=== PATIENT | female | born 1995 | race Caucasian/White ===

== ENCOUNTER 2025-03-30 12:57 | Outpatient (CLI) | payer MEDICAID, SELFPAY ==
[2025-03-30 13:17] VITALS: BP 122/78; PULSE 82
[2025-03-30 13:20] VITALS: PULSE 81; O2SAT 99
--- NOTE | 2025-03-30 13:22 | CRLHL7_ITS ---
For Patients: As a result of the Century Cures Act, medical imaging exams and procedure reports are released immediately into your electronic medical record. You may view this report before your referring provider. If you have questions, please contact your health care provider. INDICATION: Abdominal pain TECHNIQUE: Ultrasound OB pelvis transabdominal. Real-time giron-scale imaging of the fetus was performed as well as color Doppler analysis of the umbilical artery. COMPARISON: None. FINDINGS: Single living intrauterine gestation. heart rate: 149 beats per minute. Presentation: Cephalic. Placenta: Posterior, no evidence of previa. Placental lyon near the cord insertion measuring 5.2 x 1.5 x 1.8 cm. Amniotic fluid deepest pocket: 6.6 cm. Cervix: 3.3 cm in length and closed IMPRESSION.: Viable intrauterine . Placental lyon near the cord insertion measuring up to 5.2 cm. The chronicity of this is indeterminate. Given the size and close proximity of this structure to the cord insertion, close follow up ultrasound is recommended to ensure resolution. Dictated by Radha Mcmahon MD @ 03/30/2025 2:23:46 PM (Electronically Signed)
[2025-03-30 13:25] VITALS: PULSE 84; O2SAT 99
[2025-03-30 13:30] VITALS: RESP 17; TEMP 36.9
[2025-03-30 14:01] LABS: Clue Cells No Clue Cells Seen (None Seen); Trichomonas No Trichomonas Seen (None Seen); Yeast No Yeast Seen (None Seen)
[2025-03-30 14:06] LABS: Basophils Absolute Auto 0.02 K/uL (0.00-0.30); Basophils Percent Auto 0.2 % (0.0-3.0); Eosinophils Absolute Auto 0.07 K/uL (0.00-0.50); Eosinophils Percent Auto 0.8 % (0.0-7.0); Hematocrit 31.2 % (33.0-51.0); Hemoglobin* 10.5 gm/dL (12.0-16.0); Immature Granulocytes Abs Auto 0.11 K/uL (0.00-0.30); Immature Granulocytes Pct Auto 1.2 %; Lymphocytes Percent Auto 18.2 % (20-44); Mean Corpuscular HGB Conc 34 gm/dL (32-36); Mean Corpuscular Hemoglobin 30 pg (26-34); Mean Corpuscular Volume 90 fL (80-100); Monocytes Percent Auto 5.6 % (0.0-11.0); Platelet Count* 281 K/uL (140-440); RDW Coefficient of Variation % 13.2 % (11.5-15.5); Red Blood Count 3.46 m/uL (4.00-5.20); White Blood Count* 9.11 K/uL (4.50-11.00)
[2025-03-30 14:08] LABS: Appearance Urine Clear (Clear); Bilirubin Urine Negative (Negative); Blood Urine Negative (Negative); Color Urine Yellow (Yellow); Glucose Urine Negative (Negative); Ketones Urine Negative (Negative); Leukocyte Esterase Urine Negative (Negative); Nitrite Urine Negative (Negative); Protein Urine Negative (Negative); Urobilinogen Urine 0.2 (0.2-1.0)
[2025-03-30 14:12] LABS: Slide Review Reflex No
--- NOTE | 2025-03-30 14:18 | P.OBO_ITS ---
OB Outpatient HPI History of Present Illness History of Present Illness: Jayda is a 25-year-old [id number] woman at 27 3/7 weeks gestation who presents to Center triage with chief complaint of left-sided pelvic cramping which has been unremitting this morning. It is constant. She does report some consti pation upon questioning, but did have about woman today. Stools are hard. She denies any bleeding, loss of fluid. Good movement. No urinary complaints. No fevers. She has no history of labor. She has just transferred care to our institution as of 24 weeks and has had 1 visit here during this . Ob problem list: 1. History of preeclampsia without severe features 2. History of mild asthma 3. History of anxiety with panic attacks, has not had in many years Meds Home Medications and Allergies Home Medications ?Medication ?Instructions ?Recorded ?Confirmed ?Type aspirin 81 mg tablet 81 mg PO QDAY 03/08/2503/08 History vit 168-iron 27 mg-folic cap PO 03/08/2503/28 History acid 800 mcg-omega3 235 mg capsule (One-A-Day -1) Allergies Allergy/AdvReac Type Severity Reaction Status Date / Time No Known Drug Allergies Allergy Verified 03/08/25 11:29 [facility] Medical History (Updated 03/30/25 @ 14:40 by Flor Rodriguez MD) Anxiety disorder with panic attacks ?F41.9 - Anxiety disorder, unspecified (ICD-10) Surgical History (Updated 03/08/25 @ 11:49 by Doris Garcia CNM) [place] teeth extracted ?K08.409 - Partial loss of teeth, unspecified cause, unspecified class (ICD- 10) Social History (Updated 03/08/25 @ 12:34 by Doris Garcia CNM) Narrative: SOCIAL??? 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 Partner: Mahad, SO??? Lives with: Mahad and Daughter, Sally??? Pets: 2 dogs and 1 cat Abuse: Denies past/present??? Special Diet: Denies??? Ok with a blood transfusion: yes??? Culture or druze beliefs: denies? RISK FACTORS??? Exercise Times/wk: Walking, 5x per week??? Depression/Anxiety: Hx of??? WALKER: 0 PHQ 9: 0??? Seat Belt Use: Routinely?? Smoking: Denies present; Hx of smoking 5-10 years ago socially Alcohol/day: Denies while ??? Caffeine: Coffee morning up to 1x per day??? Drug Use: Denies past/present??? MRSA: Denies? What is your current living situation?: I presently have a place to live Problems where you live: no known problems In the past 12 months, utilities in danger of being shut off: no In past 12 months, lack of transportation kept you from medical appts, meetings, work, or getting things needed for daily living: no In the past 12 mos, have been you worried that your food would run out before you had money to buy more?: never true In the past 12 mos, the food you bought just didn't last and you didn't have money to buy more?: never true How often does anyone, including family, friends and others, physically hurt you : never How often does anyone, including family, friends and others, insult or talk down to you: never How often does anyone, including family, friends and others, threaten you with harm: never How often does anyone, including family, friends and others, scream or curse at you: never History History 3 Elective abortions Para 1 Spontaneous abortions 1 Hx # Term Pregnancies 1 Ectopic pregnancies Hx # Pregnancies Multiple births Number of Living Children 1 Past Pregnancies Del. Date GA/Weeks Outcome Route wt Inf Gender Labor Lgth Anesthesia Location Provider Compli Unknown spontaneous 04/15/19 37 live - full term 6 lb Female epidural [place], [place] preeclampsia OB - H&P: Exam Physical Exam Vital signs: Pulse BP Pulse Ox 82 122/78 99 03/30/25 13:17 03/30/25 13:17 03/30/25 13:25 Narrative: Physical exam: Vitals as noted above. General: No acute distress Psych: Alert and oriented x 3, full affect HEENT: Normocephalic, atraumatic Abdomen: Soft, nontender, gravid, cephalic lie. Some discomfort around palpation to left flank and left lower quadrant. Pelvic exam: Cervix closed, long, high tracing: Baseline 140, accelerations present, no decelerations, moderate variability No contractions visualized on toco Labs: WBC 9.11 Hb 10.5 Wet prep negative Ultrasound (my read): Cervix 3.3 cm SDP 6.6 Cephalic Placenta without visualized abruption Labs Labs Laboratory Tests 03/30/25 03/30/25 03/30/25 Range/Units 13:58 13:52 13:22 WBC 9.11 (4.50-11.00) K/uL RBC 3.46 L (4.00-5.20) m/uL Hgb 10.5 L (12.0-16.0) gm/dL Hct 31.2 L (33.0-51.0) % MCV 90 (80-100) fL MCH 30 (26-34) pg MCHC 34 (32-36) gm/dL RDW Coeff of Jocelyne 13.2 (11.5-15.5) % Plt Count 281 (140-440) K/uL Neut % (Auto) 74.0 H (42.0-72.0) % Lymph % (Auto) 18.2 L (20-44) % [place] % (Auto) 5.6 (0.0-11.0) % Eos % (Auto) 0.8 (0.0-7.0) % Baso % (Auto) 0.2 (0.0-3.0) % Neut # (Auto) 6.70 (1.7-7.0) K/uL Lymph # (Auto) 1.70 (0.90-2.90) K/uL [place] # (Auto) 0.50 (0.00-0.90) K/UL Eos # (Auto) 0.07 (0.00-0.50) K/uL Baso # (Auto) 0.02 (0.00-0.30) K/uL Abs Immat Gran (auto) 0.11 (0.00-0.30) K/uL Imm/Tot Granulo (auto) 1.2 % Urine Color Urine Appearance Urine pH Ur Specific [place] Urine Protein Urine Glucose (UA) Urine Ketones Urine Blood Urine Nitrite Urine Bilirubin Urine Urobilinogen Ur Leukocyte Esterase Vaginal Trichomonas No Trichomonas Seen (None Seen) Vaginal Yeast No Yeast Seen (None Seen) Vaginal Clue Cells No Clue Cells Seen (None Seen) Fibronectin Pending 03/30/25 Range/Units 13:06 WBC (4.50-11.00) K/uL RBC (4.00-5.20) m/uL Hgb (12.0-16.0) gm/dL Hct (33.0-51.0) % MCV (80-100) fL MCH (26-34) pg MCHC (32-36) gm/dL RDW Coeff of Jocelyne (11.5-15.5) % Plt Count (140-440) K/uL Neut % (Auto) (42.0-72.0) % Lymph % (Auto) (20-44) % [place] % (Auto) (0.0-11.0) % Eos % (Auto) (0.0-7.0) % Baso % (Auto) (0.0-3.0) % Neut # (Auto) (1.7-7.0) K/uL Lymph # (Auto) (0.90-2.90) K/uL [place] # (Auto) (0.00-0.90) K/UL Eos # (Auto) (0.00-0.50) K/uL Baso # (Auto) (0.00-0.30) K/uL Abs Immat Gran (auto) (0.00-0.30) K/uL Imm/Tot Granulo (auto) % Urine Color Pending Urine Appearance Pending Urine pH Pending Ur Specific [place] Pending Urine Protein Pending Urine Glucose (UA) Pending Urine Ketones Pending Urine Blood Pending Urine Nitrite Pending Urine Bilirubin Pending Urine Urobilinogen Pending Ur Leukocyte Esterase Pending Vaginal Trichomonas (None Seen) Vaginal Yeast (None Seen) Vaginal Clue Cells (None Seen) Fibronectin Assessment and Plan Assessment and plan (1) Anemia affecting : Status: Acute Assessment and Plan: Hemoglobin 10.5 today. Her recommended that she avoid iron supplementation until constipation has been managed. (2) Constipation during : Status: Acute Assessment and Plan: I recommended MiraLax nightly to begin with. Can use this as a trial to see if this helps her left lower quadrant cramping. (3) Left lower quadrant abdominal pain affecting : Status: Acute Assessment and Plan: No evidence of labor, with cervix long and closed both digitally and on ultrasound. Reassuring status with reactive tracing. She should return should symptoms worsen. Otherwise, follow up in clinic next week as scheduled.
--- NOTE | 2025-03-30 14:36 | PC.OBNST ---
NST Note NST Note Start: 03/30/25 14:34 Freq: Status: Active Protocol: Document 03/30/25 14:35 [facility] (Rec: 03/30/25 14:35 [facility] [id number]) NST Note 3 Para (# of births) 1 EDC 06/26/25 Gestational Age In 27 Weeks & 3 Days Weeks & Days Patient Presented Contractions/cramping with Complaint(s) of Reactive Yes Appropriate for Yes Gestational Age RN Farhad RN Date 03/30/25 Reactive Yes Appropriate for Yes Gestational Age RN Jero RN Date 03/30/25 OB NST charge Yes Complete NST Note Yes via Write Note The provider's electronic signature indicates the NST is reactive/appropriate for gestational age. *Note to provider: If an addendum is required, open the patient's chart and click on the note under the Nurse/Allied Health tab.
[2025-03-30 15:08] LABS: Fetal Fibronectin* Negative (Negative)
== END 2025-03-30 14:49 | disposition home or self-care (01) ==
LOC: OB OUT 12:57 → OB 12:57
PROVIDERS: Visit Provider Obstetrics & Gynecology
DX: O47.02 False labor before 37 completed weeks of gestation, second trimester (principal); Z3A.27 27 weeks gestation of pregnancy
CPT/HCPCS: 36415; 59025; 76815; 81003; 84112; 85025; 87210; G0463

== ENCOUNTER 2025-04-06 10:17 | Outpatient (CLI) | payer OTHER, MEDICAID, SELFPAY | END 2025-04-06 10:18 | disposition home or self-care (01) | LOC: NFLDREF 04-08 15:29 | PROVIDERS: Visit Provider Obstetrics & Gynecology | DX: Z34.93 Encounter for supervision of normal pregnancy, unspecified, third trimester (principal); Z3A.28 28 weeks gestation of pregnancy | CPT/HCPCS: 86592; 86787 ==

== ENCOUNTER 2025-04-22 13:12 | Outpatient (CLI) | payer OTHER, MEDICAID, SELFPAY | END 2025-04-22 13:13 | disposition home or self-care (01) | PROVIDERS: Visit Provider Obstetrics & Gynecology | DX: O09.293 Supervision of pregnancy with other poor reproductive or obstetric history, third trimester (principal); Z3A.30 30 weeks gestation of pregnancy | CPT/HCPCS: 82565; 82570; 84156; 84450; 84460; 84520 ==

== ENCOUNTER 2025-05-03 09:04 | Outpatient (CLI) | payer OTHER, MEDICAID, SELFPAY | END 2025-05-03 09:05 | disposition home or self-care (01) | LOC: NFLDREF 05-04 15:47 | PROVIDERS: Visit Provider Obstetrics & Gynecology | DX: O09.299 Supervision of pregnancy with other poor reproductive or obstetric history, unspecified trimester (principal) | CPT/HCPCS: 82570; 84156 ==

== ENCOUNTER 2025-05-05 15:24 | Outpatient (CLI) | payer OTHER, MEDICAID, SELFPAY ==
[2025-05-05] VITALS (33 sets, daily range): BP systolic 122; BP diastolic 76; PULSE 85–108; RESP 18; TEMP 36.9; O2SAT 91–100
--- NOTE | 2025-05-05 16:47 | CRLHL7_ITS ---
For Patients: As a result of the Cures Act, medical imaging exams and procedure reports are released immediately into your electronic medical record. You may view this report before your referring provider. If you have questions, please contact your health care provider. INDICATION: Cough. Shortness of breath. TECHNIQUE: Chest 1 portable view. COMPARISON: None. FINDINGS: No pneumothorax or pleural effusion. Lungs are clear. Cardiac and mediastinal contours are within normal limits. Upper abdomen and osseous structures as imaged show no acute abnormality. IMPRESSION: No evidence of acute cardiopulmonary disease. Dictated by Simone Parmar MD @ 05/05/2025 7:10:46 PM (Electronically Signed)
[2025-05-05 17:22] LABS: Hematocrit* 30.0 % (33.0-51.0); Hemoglobin* 10.2 gm/dL (12.0-16.0); Immature Granulocytes Abs Auto 0.10 K/uL (0.00-0.30); Immature Granulocytes Pct Auto 1.1 %; Mean Corpuscular HGB Conc 34 gm/dL (32-36); Mean Corpuscular Hemoglobin 30 pg (26-34); Mean Corpuscular Volume 89 fL (80-100); RDW Coefficient of Variation % 13.4 % (11.5-15.5); Red Blood Count* 3.37 m/uL (4.00-5.20); White Blood Count* 9.34 K/uL (4.50-11.00)
[2025-05-05 17:27] LABS: Lymphocytes Absolute Auto 1.80 K/uL (0.90-2.90); Slide Review Reflex No
[2025-05-05 17:57] LABS: NT Pro B Type NatriureticPept* 73 pg/mL (See Note)
--- NOTE | 2025-05-05 18:45 | P.OBLDTN_ITS ---
OB - Triage/Final Diagnosis Visit Information Time Seen by Provider: 18:45 Narrative: The patient is a 29 year old 3 para 1 at 32 weeks gestation by LMP, who presents with decreased movement and cough. is complicated by history of preeclampsia in a previous , proteinuria, acid reflux, constipation, history of asthma and episodes of palpitations. Patient call clinic triage today. She notes she has had about a week and a half of a cough that is persistent and bothersome. She was not particularly worried about this, but then noted today that her movement was decreased from baseline. She was encouraged to present to care. On arrival, fortunately status is entirely reassuring and reactive. I presented the bedside, where patient notes that she has had a persistent dry cough for about the last 2 weeks. She notes that she has no known sick contacts, denies any fever/chills, headache. At night, she will note that she does seem to have some postnasal drip and otherwise notes that her nose feels like she has a dry congestion. P atient does note that she has felt shortness of breath over the last week and a half, particular when lying down. She has noticed some worsening lower extremity edema, but this does improve with/elevation. She has no history of chronic hypertension, cardiovascular disease or VTE. She does have a history of asthma, this is primarily bothersome as a child. Now, she will really only get flares if she were to have an infection/cold or with significant exercise. She does not have an albuterol inhaler on hand. She has not taken any medications to try to help her cough symptoms, as she was unc ertain what is safe to use in . Vital signs reviewed and are within normal limits. Mild tachycardia noted, at patient baseline. Blood pressure is totally normal and she is satting well on room air. status across extended monitoring is reactive/reassuring. Patient notes return of active movement during her time in triage. She is overall well-appearing and in no acute distress. Heart rate is regular with no rubs murmurs or gallops. Lungs are clear to posterior auscultation throughout, no apparent wheezes or crackles. No significant lower extremity edema. Out of an abundance of precaution, I did proceed with viral swab, lab evaluation and a chest x-ray to evaluate for potential infectious etiologies, acute pulmonary processes and peripartum cardiomyopathy/heart failure. My clinical suspicion for dangerous pathologies is overall very low. CBC is normal with no leukocytosis. Patient is known to be anemic, 10.2 today. Her BNP was entirely within normal limits at 73. Viral swab was found to be negative. Chest x-ray was read by myself and the physician, no acute pathologies identified. Specifically, no apparent pneumonia, pneumothorax, pleural effusion or pulmonary edema. Cardiac silhouette does not appear enlarged. Heart failure is felt to be reasonably excluded given my overall low clinical suspicion and normal BNP. Given extended duration between imaging and radiology read, patient was counseled on my preliminary findings understands I will contact her if there any acute findings after formal radiology read of her chest x-ray. She expressed understanding and is agreeable to plan. Recommend she symptomatic we manage her cough with guaifenesin, nasal irrigation/Flonase and trial of albuterol inhaler. Strict return precautions reinforced for worsening symptoms, acute chest pain, acute dyspnea, dizziness/lightheadedness, fever/chills. VTE return precautions were reinforced for lower extremity erythema, pain, edema and/or again chest pain or dyspnea. Patient expressed understanding and is agreeable to plan. Reason for evaluation: decreased movement Evaluation Laboratory results: Laboratory Tests 05/05/25 05/05/25 Range/Units 18:10 16:57 WBC 9.34 (4.50-11.00) K/uL RBC 3.37 L (4.00-5.20) m/uL Hgb 10.2 L (12.0-16.0) gm/dL Hct 30.0 L (33.0-51.0) % MCV 89 (80-100) fL MCH 30 (26-34) pg MCHC 34 (32-36) gm/dL RDW Coeff of Jocelyne 13.4 (11.5-15.5) % Plt Count 288 (140-440) K/uL Neut % (Auto) 70.3 (42.0-72.0) % Lymph % (Auto) 19.4 L (20-44) % [place] % (Auto) 7.7 (0.0-11.0) % Eos % (Auto) 1.2 (0.0-7.0) % Baso % (Auto) 0.3 (0.0-3.0) % Neut # (Auto) 6.57 (1.7-7.0) K/uL Lymph # (Auto) 1.80 (0.90-2.90) K/uL [place] # (Auto) 0.70 (0.00-0.90) K/UL Eos # (Auto) 0.11 (0.00-0.50) K/uL Baso # (Auto) 0.03 (0.00-0.30) K/uL Abs Immat Gran (auto) 0.10 (0.00-0.30) K/uL Imm/Tot Granulo (auto) 1.1 % NT-Pro-B Natriuret Pep 73 (See Note) pg/mL SARS-CoV-2 (PCR) Pending Influenza Type A (PCR) Pending Influenza Type B (PCR) Pending Vital signs: Vital Signs - 24 hr 05/05/25 15:37 05/05/25 15:38 05/05/25 15:58 Temperature 98.4 F Pulse Rate 103 H Respiratory Rate 18 Blood Pressure 122/76 Pulse Oximetry 98 98 05/05/25 16:03 05/05/25 16:08 05/05/25 16:13 Temperature Pulse Rate Respiratory Rate Blood Pressure Pulse Oximetry 98 98 98 05/05/25 16:18 05/05/25 16:23 05/05/25 16:28 Temperature Pulse Rate Respiratory Rate Blood Pressure Pulse Oximetry 96 97 98 05/05/25 16:33 05/05/25 16:38 05/05/25 16:43 Temperature Pulse Rate Respiratory Rate Blood Pressure Pulse Oximetry 97 98 99 05/05/25 16:48 05/05/25 16:50 05/05/25 16:53 Temperature Pulse Rate Respiratory Rate Blood Pressure Pulse Oximetry 97 91 98 05/05/25 16:58 05/05/25 17:03 05/05/25 17:08 Temperature Pulse Rate Respiratory Rate Blood Pressure Pulse Oximetry 99 97 98 05/05/25 17:13 05/05/25 17:18 05/05/25 17:23 Temperature Pulse Rate Respiratory Rate Blood Pressure Pulse Oximetry 98 99 99 05/05/25 17:28 05/05/25 17:33 05/05/25 17:38 Temperature Pulse Rate Respiratory Rate Blood Pressure Pulse Oximetry 98 98 98 05/05/25 17:43 05/05/25 17:48 05/05/25 17:53 Temperature Pulse Rate Respiratory Rate Blood Pressure Pulse Oximetry 99 100 99 05/05/25 17:58 05/05/25 18:03 05/05/25 18:08 Temperature Pulse Rate Respiratory Rate Blood Pressure Pulse Oximetry 99 98 99 05/05/25 18:13 05/05/25 18:18 05/05/25 18:23 Temperature Pulse Rate Respiratory Rate Blood Pressure Pulse Oximetry 99 99 98
[2025-05-05 18:53] LABS: PCR FLU A Negative PCR FLU A (Negative); PCR FLU B Negative PCR FLU B (Negative); SARS PCR* Negative SARS-CoV-2 (Negative)
--- NOTE | 2025-05-05 18:58 | PC.OBNST ---
NST Note NST Note Start: 05/05/25 15:40 Freq: ONCE Status: Active Protocol: Document 05/05/25 18:53 [facility] (Rec: 05/05/25 18:58 [facility] Desktop) NST Note 3 Para (# of births) 1 EDC 04/15/19 Gestational Age In 356 Weeks & 0 Days Weeks & Days Patient Presented Decreased movement with Complaint(s) of Reactive Yes Appropriate for Yes Gestational Age JEAN MARIE Choe RN Date 05/05/25 Reactive Yes Appropriate for Yes Gestational Age JEAN MARIE Jaquez RN Date 05/05/25 OB NST charge Yes Complete NST Note Yes via Write Note The provider's electronic signature indicates the NST is reactive/appropriate for gestational age. *Note to provider: If an addendum is required, open the patient's chart and click on the note under the Nurse/Allied Health tab.
== END 2025-05-05 18:37 | disposition home or self-care (01) ==
LOC: OB OUT 15:25 → OB 15:25
PROVIDERS: Visit Provider Obstetrics & Gynecology
DX: O36.8130 Decreased fetal movements, third trimester, not applicable or unspecified (principal); O26.893 Other specified pregnancy related conditions, third trimester; R05.9 Cough, unspecified; R06.02 Shortness of breath; Z3A.32 32 weeks gestation of pregnancy
CPT/HCPCS: 36415; 59025; 71045; 83880; 85025; 87631; G0463

== ENCOUNTER 2025-05-11 09:45 | Outpatient (CLI) | payer OTHER, MEDICAID, SELFPAY ==
[2025-05-11] VITALS (8 sets, daily range): BP systolic 119–132; BP diastolic 76–85; PULSE 88–121; TEMP 36.8; O2SAT 99
--- NOTE | 2025-05-11 09:56 | CRLHL7_ITS ---
For Patients: As a result of the Century Cures Act, medical imaging exams and procedure reports are released immediately into your electronic medical record. You may view this report before your referring provider. If you have questions, please contact your health care provider. INDICATION: Growth. Preeclampsia. TECHNIQUE: Limited transabdominal two-dimensional giron-scale ultrasound examination. COMPARISON: 03/30/2025 FINDINGS: There is a living fetus in cephalic lie with gestational age of 33 weeks 3 days by LMP and 34 weeks 2 days by today`s measurements. EDC based on LMP is 06/26/2025. BPD: 8.3 cm, 33 weeks 4 days Head circumference: 30.1 cm, 33 weeks 2 days Abdominal circumference: 32.3 cm, 36 weeks 1 day Femur length: 6.6 cm, 34 weeks HC/AC: 0.93 The weight is estimated at 2573 grams, the 87th percentile. The heart rate is measured at 159 beats per minute and the rhythm appears regular. The amniotic fluid volume is within normal limits with single deepest pocket of 6 cm. The placenta is posterior. IMPRESSION: 1. Living fetus in cephalic lie with gestational age of 33 weeks 3 days by LMP and 34 weeks 2 days by today`s measurements. EDC based on LMP is 06/26/2025. 2. weight estimated at 2573 grams, the 87th percentile. Dictated by Brent Azevedo MD @ 05/11/2025 10:56:24 AM (Electronically Signed)
[2025-05-11] MEDS: BETAMETHASONE SOD PHOS/ACETATE 6 MG/ML ML 12 MG IM (10:20)
[2025-05-11 10:21] LABS: Hematocrit 33.3 % (33.0-51.0); Hemoglobin* 11.1 gm/dL (12.0-16.0); Mean Corpuscular HGB Conc 33 gm/dL (32-36); Mean Corpuscular Hemoglobin 30 pg (26-34); Mean Corpuscular Volume 90 fL (80-100); Red Blood Count 3.70 m/uL (4.00-5.20); White Blood Count* 10.26 K/uL (4.50-11.00)
[2025-05-11 10:22] LABS: Slide Review Reflex No
[2025-05-11 10:34] LABS: Blood Urea Nitrogen* 6 mg/dL (5-24); Creatinine* 0.7 mg/dL (0.5-1.5); Estimated Glomerular Filt Rate 121 ml/min
[2025-05-11 10:35] LABS: Alanine Aminotransferase* 25 U/L (4-35); Aspartate Amino Transferase* 31 U/L (12-35)
[2025-05-11 11:14] LABS: Amnisure Rom* Negative
[2025-05-11 11:21] LABS: Trichomonas No Trichomonas Seen (None Seen)
[2025-05-12 09:46] LABS: Strep B DNA Probe Negative (Negative)
[2025-05-12 10:11] LABS: Strep B Susceptibility Needed? No
--- NOTE | 2025-06-27 16:03 | PC.OBNST ---
NST Note NST Note Start: 05/11/25 09:51 Freq: ONCE Status: Discharge Protocol: Document 05/11/25 09:51 [facility] (Rec: 05/11/25 12:30 [facility] [id number]) NST Note 3 Para (# of births) 1 EDC 06/26/25 Gestational Age In 33 Weeks & 3 Days Weeks & Days High Risk Factors High Blood Pressure - Gestational Patient Presented Leaking fluid,Other with Complaint(s) of Other Complaints R/O pre-e Reactive Yes Appropriate for Yes Gestational Age JEAN MARIE Jaquez RN Date 05/11/25 Reactive Yes Appropriate for Yes Gestational Age JEAN MARIE Gtz RN Date 05/11/25 OB NST charge Yes Complete NST Note Yes via Write Note The provider's electronic signature indicates the NST is reactive/appropriate for gestational age. *Note to provider: If an addendum is required, open the patient's chart and click on the note under the Nurse/Allied Health tab.
== END 2025-05-11 12:25 | disposition home or self-care (01) ==
LOC: OB OUT 09:48 → OB 09:49
PROVIDERS: Visit Provider Obstetrics & Gynecology
DX: O14.93 Unspecified pre-eclampsia, third trimester (principal); Z3A.33 33 weeks gestation of pregnancy
CPT/HCPCS: 36415; 59025; 76815; 82565; 84112; 84450; 84460; 84520; 85027; 87081; 87210; 87653; G0463; J0702

== ENCOUNTER 2025-05-12 11:03 | Outpatient (CLI) | payer OTHER, MEDICAID, SELFPAY ==
[2025-05-12] VITALS (25 sets, daily range): BP systolic 113–137; BP diastolic 60–79; PULSE 85–107; RESP 16; TEMP 36.8; O2SAT 97–98
[2025-05-12 11:30] LABS: Hematocrit 29.9 % (33.0-51.0); Hemoglobin* 9.9 gm/dL (12.0-16.0); Mean Corpuscular HGB Conc 33 gm/dL (32-36); Mean Corpuscular Hemoglobin 30 pg (26-34); Mean Corpuscular Volume 90 fL (80-100); Red Blood Count 3.32 m/uL (4.00-5.20); White Blood Count* 14.16 K/uL (4.50-11.00)
[2025-05-12 11:34] LABS: Slide Review Reflex No
[2025-05-12 11:48] LABS: Alanine Aminotransferase* 27 U/L (4-35); Aspartate Amino Transferase* 33 U/L (12-35); Blood Urea Nitrogen* 7 mg/dL (5-24); Creatinine* 0.6 mg/dL (0.5-1.5); Estimated Glomerular Filt Rate 125 ml/min
--- NOTE | 2025-05-12 16:32 | PC.OBNST ---
NST Note NST Note Start: 05/12/25 11:11 Freq: ONCE Status: Active Protocol: Document 05/12/25 16:30 [facility] (Rec: 05/12/25 16:32 [facility] [id number]) NST Note 3 Para (# of births) 1 EDC 06/26/25 Gestational Age In 33 Weeks & 4 Days Weeks & Days High Risk Factors High Blood Pressure - Gestational Patient Presented Other with Complaint(s) of Other Complaints High BP in clinic, continued monitoring Reactive Yes Appropriate for Yes Gestational Age RN Marino Stanton RN Date 05/12/25 Reactive Yes Appropriate for Yes Gestational Age JEAN MARIE Alvarado RN Date 05/12/25 OB NST charge Yes Complete NST Note Yes via Write Note The provider's electronic signature indicates the NST is reactive/appropriate for gestational age. *Note to provider: If an addendum is required, open the patient's chart and click on the note under the Nurse/Allied Health tab.
== END 2025-05-12 16:05 | disposition home or self-care (01) ==
LOC: OB OUT 11:03 → OB 11:03
PROVIDERS: Visit Provider Obstetrics & Gynecology
DX: O13.3 Gestational [pregnancy-induced] hypertension without significant proteinuria, third trimester (principal); Z3A.33 33 weeks gestation of pregnancy
CPT/HCPCS: 36415; 59025; 82565; 82728; 84450; 84460; 84520; 85027; G0463

== ENCOUNTER 2025-05-13 13:39 | Outpatient (CLI) | payer OTHER, MEDICAID, SELFPAY ==
--- NOTE | 2025-05-13 13:45 | CRLHL7_ITS ---
For Patients: As a result of the Century Cures Act, medical imaging exams and procedure reports are released immediately into your electronic medical record. You may view this report before your referring provider. If you have questions, please contact your health care provider. INDICATION: Preeclampsia TECHNIQUE: Ultrasound OB pelvis transabdominal. Real-time giron-scale imaging of the fetus was performed with color Doppler and spectral Doppler analysis of the umbilical artery without stress testing. COMPARISON: 05/11/2025 FINDINGS: Sonographic imaging demonstrates a single living intrauterine gestation. Fetus demonstrates a regular cardiac rate of 137 beats per minute. Fetus has a cephalic orientation. The placenta lies posterior. Amniotic fluid volume appears normal with a MVP of 3.7 cm. breathing movements, motion, and tone were all observed. IMPRESSION: Single viable intrauterine with a biophysical profile 06/11. Dictated by Urban Llanes MD @ 05/13/2025 3:55:06 PM (Electronically Signed)
== END 2025-05-13 13:40 | disposition home or self-care (01) ==
LOC: US 13:40
PROVIDERS: Visit Provider Obstetrics & Gynecology
DX: O14.90 Unspecified pre-eclampsia, unspecified trimester (principal)
CPT/HCPCS: 76819

== ENCOUNTER 2025-05-13 13:39 | Outpatient (CLI) | payer OTHER, MEDICAID, SELFPAY | END 2025-05-13 13:40 | disposition home or self-care (01) | LOC: NFLDREF 05-18 05:44 | PROVIDERS: Visit Provider Obstetrics & Gynecology | DX: O12.13 Gestational proteinuria, third trimester (principal); Z3A.33 33 weeks gestation of pregnancy | CPT/HCPCS: 82565; 84450; 84460; 84520; 84550 ==

== ENCOUNTER 2025-05-18 08:50 | Outpatient (CLI) | payer OTHER, MEDICAID, SELFPAY ==
[2025-05-18] VITALS (24 sets, daily range): BP systolic 121–140; BP diastolic 68–87; PULSE 81–101; O2SAT 88–100
--- NOTE | 2025-05-18 11:49 | PC.OBNST ---
NST Note NST Note Start: 05/18/25 09:02 Freq: ONCE Status: Active Protocol: Document 05/18/25 10:25 [facility] (Rec: 05/18/25 11:49 [facility] [id number]) NST Note 2 Para (# of births) 1 EDC 06/26/25 Gestational Age In 34 Weeks & 3 Days Weeks & Days High Risk Factors High Blood Pressure - Gestational Patient Presented Other with Complaint(s) of Other Complaints Allergic reaction during iron transfusion Reactive Yes Appropriate for Yes Gestational Age JEAN MARIE Fernandez RN Date 05/18/25 Reactive Yes Appropriate for Yes Gestational Age JEAN MARIE Jaquez RN Date 05/18/25 OB NST charge Yes Complete NST Note Yes via Write Note The provider's electronic signature indicates the NST is reactive/appropriate for gestational age. *Note to provider: If an addendum is required, open the patient's chart and click on the note under the Nurse/Allied Health tab.
== END 2025-05-18 10:30 | disposition home or self-care (01) ==
LOC: OB OUT 08:52 → OB 08:53
PROVIDERS: Visit Provider Obstetrics & Gynecology
DX: O13.3 Gestational [pregnancy-induced] hypertension without significant proteinuria, third trimester (principal); Z3A.34 34 weeks gestation of pregnancy
CPT/HCPCS: 59025; G0463

== ENCOUNTER 2025-05-20 12:53 | Outpatient (CLI) | payer OTHER, MEDICAID, SELFPAY | END 2025-05-20 12:54 | disposition home or self-care (01) | LOC: NFLDREF 05-21 09:58 | PROVIDERS: Visit Provider Obstetrics & Gynecology | DX: O14.93 Unspecified pre-eclampsia, third trimester (principal); O12.13 Gestational proteinuria, third trimester; Z3A.34 34 weeks gestation of pregnancy | CPT/HCPCS: 82565; 84450; 84460; 84520; 84550 ==

== ENCOUNTER 2025-05-20 12:54 | Outpatient (CLI) | payer OTHER, MEDICAID, SELFPAY ==
--- NOTE | 2025-05-20 13:00 | CRLHL7_ITS ---
For Patients: As a result of the Cures Act, medical imaging exams and procedure reports are released immediately into your electronic medical record. You may view this report before your referring provider. If you have questions, please contact your health care provider. OB ULTRASOUND BIOPHYSICAL PROFILE, 05/20/2025 CLINICAL HISTORY: Pre-E without severe features. COMPARISON: 05/13/2025, 05/11/2025, 03/05/2025. TECHNIQUE: Real time giron scale imaging of the fetus was performed. Transabdominal imaging performed. FINDINGS: MARION by LMP: 06/26/2025. GA: 34 weeks 5 days. Cervix: Not visualized. Amniotic Fluid: 4.3 cm SDP. BIOPHYSICAL PROFILE: Gross Body Movements: 2 Tone: 2 Respiratory Activity: 2 Amniotic Fluid SDP: 2 Total Score: 8 Placenta: Technique: TA. Placenta Position: Posterior. Dopplers: Heart Rate: 155 bpm. IMPRESSION: Normal biophysical profile score of 8/8. Landon Ocampo M.D. Diagnostic Radiologist [email or web address] Transcribed: 2:11 pm DW/Dictated by: Landon Ocampo MD @ 05/20/2025 1:29:00 PM (Electronically Signed)
== END 2025-05-20 12:55 | disposition home or self-care (01) ==
LOC: US 12:54
PROVIDERS: Visit Provider Obstetrics & Gynecology
DX: O14.93 Unspecified pre-eclampsia, third trimester (principal); Z3A.34 34 weeks gestation of pregnancy; O12.13 Gestational proteinuria, third trimester
CPT/HCPCS: 76819

== ENCOUNTER 2025-05-27 12:52 | Outpatient (CLI) | payer OTHER, MEDICAID, SELFPAY ==
--- NOTE | 2025-05-27 14:00 | CRLHL7_ITS ---
For Patients: As a result of the Century Cures Act, medical imaging exams and procedure reports are released immediately into your electronic medical record. You may view this report before your referring provider. If you have questions, please contact your health care provider. INDICATION: Gestational proteinuria TECHNIQUE: Ultrasound OB pelvis transabdominal. Real-time giron-scale imaging of the fetus was performed with color Doppler and spectral Doppler analysis of the umbilical artery without stress testing. COMPARISON: 05/20/2025 FINDINGS: Sonographic imaging demonstrates a single living intrauterine gestation. Fetus demonstrates a regular cardiac rate of 134 beats per minute. Fetus has a cephalic orientation. The placenta lies posterior. Amniotic fluid volume appears normal with a MVP of 5.4 cm. breathing movements, motion, and tone were all observed. IMPRESSION: Single viable intrauterine with a biophysical profile 06/11. Dictated by Urban Llanes MD @ 05/27/2025 3:05:48 PM (Electronically Signed)
== END 2025-05-27 12:53 | disposition home or self-care (01) ==
LOC: US 12:53
PROVIDERS: Visit Provider Obstetrics & Gynecology
DX: O12.13 Gestational proteinuria, third trimester (principal)
CPT/HCPCS: 76819; 82565; 84450; 84460; 84520; 84550; 87653

== ENCOUNTER 2025-05-31 09:29 | Outpatient (CLI) | payer OTHER, MEDICAID, SELFPAY | END 2025-05-31 09:30 | disposition home or self-care (01) | PROVIDERS: Visit Provider Obstetrics & Gynecology | DX: O14.93 Unspecified pre-eclampsia, third trimester (principal); O12.13 Gestational proteinuria, third trimester; Z3A.36 36 weeks gestation of pregnancy | CPT/HCPCS: 82565; 84450; 84460; 84520; 84550 ==

== ENCOUNTER 2025-06-01 14:58 | Inpatient (IN) | payer OTHER, MEDICAID, SELFPAY ==
[2025-06-01] VITALS (91 sets, daily range): BP systolic 94–151; BP diastolic 51–98; PULSE 76–118; RESP 16; TEMP 36.4–36.7; O2SAT 83–100; BMI 32.5
[2025-06-01 11:58] LABS: Hematocrit* 32.2 % (33.0-51.0); Hemoglobin* 10.5 gm/dL (12.0-16.0); Mean Corpuscular HGB Conc 33 gm/dL (32-36); Mean Corpuscular Hemoglobin 29 pg (26-34); Mean Corpuscular Volume 90 fL (80-100); Red Blood Count* 3.57 m/uL (4.00-5.20); White Blood Count* 10.40 K/uL (4.50-11.00)
[2025-06-01 12:11] LABS: Slide Review Reflex No
[2025-06-01 12:16] LABS: Alanine Aminotransferase* 20 U/L (4-35); Aspartate Amino Transferase* 30 U/L (12-35); Blood Urea Nitrogen* 7 mg/dL (5-24); Creatinine* 0.7 mg/dL (0.5-1.5); Estimated Glomerular Filt Rate 121 ml/min
[2025-06-01] MEDS: ACETAMINOPHEN 500 MG TABLET 1000 MG PO ×2 (13:24→19:32)
[2025-06-01] MEDS: LACTATED RINGERS 500 ML 500 ML IV (13:27)
[2025-06-01] MEDS: PROCHLORPERAZINE 10 MG TABLET PO (13:31)
[2025-06-01] MEDS: MAGNESIUM IV 4 GM/100 ML PIGGYBACK IVPB (15:55)
[2025-06-01] MEDS: LACTATED RINGERS 1000 ML 1,000 ML 75 ML IV (15:55)
[2025-06-01] MEDS: MAGNESIUM Infusion 40 GM/1,000 ML IV.SOLN IVPB (16:30)
--- NOTE | 2025-06-01 17:58 | P.LDBA_ITS ---
Subjective History of Present Illness Time Seen by Provider: 18:00 Date Seen: 06/01/25 Narrative: Patient is being admitted to Labor and Delivery for induction of labor due to preeclampsia with severe features. She is a 29 year old at 36.3 weeks gestation. Her full history and physical was dictated by myself on 05/27. Please see this for details. She presented for evaluation in triage today due to an unremitting headache. It had come on a couple of days ago and has worsened. Nothing has helped. She started seeing spots and lines in her vision today. She received 500 mL IV bolus, 100 g of Tylenol, Compazine, morphine, hydroxyzine in triage. They were minimally helpful. She reports new onset of photophobia as well. Her blood pressures in triage were normal to mild ranging. 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 Given diagnosis, delivery is indicated. Active movement. Denies Ctx, LOF, vaginal bleeding or abnormal vaginal discharge. Denies SOB, right upper quadrant/epigastric pain, or rapidly expanding edema. Specific Issues/Plans Partner: Mahad Daughter: Sally(age 6) Baby: [] Transfer at 24.2 weeks from [facility] H&P by Dr. Mccloud on 05/27 #Preeclampsia w/o severe features dx'd on 05/11/25 @ 33w3d Elevated BPs 05/11/25 and proteinuria in 24 hours collected on 05/03/25 Growth US 05/11/25 Start twice weekly monitoring Delivery at 37 weeks, IOL scheduling form request sent start 06/04/25 at 36 6/7 weeks BMTZ: 05/11/25, 05/12/25 #Proteinuria: 05/03/25 32w2d 24hr urine protein: 457.5gm. Urine P/C 0.31 * Referral to nephrology #Hx of Pre-eclampsia w/out SF Taking baby ASA # Hx of mild Asthma, Does not use inhaler, improved in adulthood # Hx of anxiety with panic attacks: not on medication # 05/20/25: [place] ED for SOB, palpitations, tachycardia, elevated BP and chest pain * EKG: normal sinus rhythm * Troponin normal * CBC and comprehensive metabolic panel normal # Seen on Center for left-sided pelvic cramping on 03/30/2025. Ultrasound showed only placental lyon near the cord insertion measuring up to 5.2 cm; otherwise normal findings. Recommended initiation of MiraLax. Follow up on 04/06. # Anemia with hemoglobin 10.5 on 03/30/2025. - Start Fe every other day on 04/06 - Recheck on 05/12: 9.9. - Iron infusions: Had a vasovagal response (? due to anxiety) to first infusion on 05/18 so will restart PO 2tabs QOD. #Varicella non-immune - Recommend vaccine PP Transfer labs: Blood type: A+, antibody screen negative.??? Hgb (12/14/2024): 13.7??? Platelets (12/14/2024): 335??? Rubella: Immune??? Varicella: NOT immune - vaccine needed PP RPR: non-reactive??? HBsAg: non-reactive??? Hep C: negative? HIV: negative??? UC: negative? GC/Chlamydia: negative/negative??? Pap (12/14/2024): NIL??? Genetic screening: Low risk? 1st trimester: 11/16/2024??? Anatomy scan (02/03/2025): SIUP, limited view of outflow tracts and sacral spine. EFW 66.8%. Posterior placenta. No follow-up needed. Growth US 05/11/25: BPD: 8.3 cm, 33 weeks 4 days. Head circumference: 30.1 cm, 33 weeks 2 days. Abdominal circumference: 32.3 cm, 36 weeks 1 day. Femur length: 6.6 cm, 34 weeks . HC/AC: 0.93. The weight is estimated at 2573 grams, the 87th percentile.The amniotic fluid volume is within normal limits with single deepest pocket of 6 cm. 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 - BPs 110-140s/60-80s - Symptoms: headache. Improved with Magnesium infusion. Will give 1000 mg of Tylenol Q6H - Magnesium: on Magnesium for seizure ppx - IV antihypertensives: currently not indicated - PO antihypertensives: Currently not indicated - Pre-eclampsia labs on 06/01/2025 at 1830: Hgb 10.6 Plt 298 Cr 0.6 ALT 32 AST 19. Labs q6h - Strict I/O IOL - Cook cath placed at 1830. 50cc/50cc. Patient tolerated the procedure well OB Exam Physical Exam Vital signs: Temp Pulse Resp BP Pulse Ox 97.6 F 76 16 123/72 100 06/01/25 16:45 06/01/25 17:49 06/01/25 16:45 06/01/25 17:49 06/01/25 17:54 Narrative: Physical exam: General: No acute distress Psych: Alert and oriented x3, full affect HEENT: Normocephalic, atraumatic Lungs: Unlabored breathing Neuro: No focal deficit. Mentating appropriately Abdominal: Gravid. Soft, nontender, nondistended. No rebound or guarding. Pelvic exam: Dry perineum. /-3.
[2025-06-01 18:50] LABS: Hematocrit* 32.4 % (33.0-51.0); Hemoglobin* 10.6 gm/dL (12.0-16.0); Mean Corpuscular HGB Conc 33 gm/dL (32-36); Mean Corpuscular Hemoglobin 29 pg (26-34); Mean Corpuscular Volume 90 fL (80-100); Red Blood Count* 3.61 m/uL (4.00-5.20); White Blood Count* 10.47 K/uL (4.50-11.00)
[2025-06-01 18:53] LABS: Slide Review Reflex No
[2025-06-01 19:06] LABS: Alanine Aminotransferase* 19 U/L (4-35); Aspartate Amino Transferase* 32 U/L (12-35); Blood Urea Nitrogen* 6 mg/dL (5-24); Creatinine* 0.6 mg/dL (0.5-1.5); Est. Creatinine Clearance* 110.41; Estimated Glomerular Filt Rate 125 ml/min
[2025-06-01 21:08] LABS: Hematocrit* 28.1 % (33.0-51.0); Hemoglobin* 9.3 gm/dL (12.0-16.0); Mean Corpuscular HGB Conc 33 gm/dL (32-36); Mean Corpuscular Hemoglobin 30 pg (26-34); Mean Corpuscular Volume 90 fL (80-100); Red Blood Count* 3.12 m/uL (4.00-5.20); White Blood Count* 9.44 K/uL (4.50-11.00)
[2025-06-01 21:09] LABS: Slide Review Reflex No
[2025-06-02] VITALS (134 sets, daily range): BP systolic 84–180; BP diastolic 50–95; PULSE 85–121; RESP 16; TEMP 36.4–36.9; O2SAT 93–100
[2025-06-02 00:34] LABS: Hematocrit* 27.8 % (33.0-51.0); Hemoglobin* 9.2 gm/dL (12.0-16.0); Mean Corpuscular HGB Conc 33 gm/dL (32-36); Mean Corpuscular Hemoglobin 30 pg (26-34); Mean Corpuscular Volume 90 fL (80-100); Red Blood Count* 3.09 m/uL (4.00-5.20); White Blood Count* 11.18 K/uL (4.50-11.00)
[2025-06-02] MEDS: OXYTOCIN 30 unit/500 ML in NS 30 UNIT/500 ML BAG IVPB (00:36)
[2025-06-02 00:42] LABS: Slide Review Reflex No
[2025-06-02 00:49] LABS: Alanine Aminotransferase* 18 U/L (4-35); Aspartate Amino Transferase* 29 U/L (12-35); Blood Urea Nitrogen* 6 mg/dL (5-24); Creatinine* 0.6 mg/dL (0.5-1.5); Est. Creatinine Clearance* 110.41; Estimated Glomerular Filt Rate 125 ml/min
[2025-06-02] MEDS: ACETAMINOPHEN 500 MG TABLET 1000 MG PO ×3 (01:55→20:34)
[2025-06-02] MEDS: LACTATED RINGERS 1000 ML 1,000 ML 70 ML IV (04:59)
[2025-06-02 07:57] LABS: Hematocrit* 29.2 % (33.0-51.0); Hemoglobin* 9.9 gm/dL (12.0-16.0); Mean Corpuscular HGB Conc 34 gm/dL (32-36); Mean Corpuscular Hemoglobin 31 pg (26-34); Mean Corpuscular Volume 90 fL (80-100); Red Blood Count* 3.25 m/uL (4.00-5.20); White Blood Count* 10.83 K/uL (4.50-11.00)
[2025-06-02 07:58] LABS: Slide Review Reflex No
[2025-06-02 08:19] LABS: Alanine Aminotransferase* 16 U/L (4-35); Aspartate Amino Transferase* 30 U/L (12-35); Blood Urea Nitrogen* 6 mg/dL (5-24); Creatinine* 0.6 mg/dL (0.5-1.5); Est. Creatinine Clearance* 110.41; Estimated Glomerular Filt Rate 125 ml/min
--- NOTE | 2025-06-02 08:42 | PM.OBPNL ---
Subjective Time Seen by Provider: 11:00 Date Seen: 06/02/25 Narrative: Delayed documentation due to patient care. Jayda is a 29yo at 36w4d GA ongoing IOL due to preeclampsia with severe features. She is a 29 year old at 36.3 weeks gestation. 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 Decision was made to admit and start induction. Preeclampsia labs were found to be within normal limits. She was started on magnesium sulfate for seizure prophylaxis. Overnight, a Cook catheter was placed and Pitocin augmentation occurred. Her Cook was removed at about 620 this morning. Patient noted increasingly regular/painful contractions through the morning, where an epidural was requested and administered. After this, she had a period of hypotension and feeling off with nausea. Her blood pressures were treated with phenylephrine and ephedrine, ultimately the epidural infusion was discontinued. Jayda notes desire to proceed with active management of her induction. She is hopeful to expedite delivery, where she is uncertain if she would like the epidural infusion to be resumed later due to feeling poorly. As such, we discussed the risks/benefits and alternatives to amniotomy. Verbal consent was obtained if felt to be safe on exam. Objective Exam: General: Alert and oriented, in no acute distress Psych: Appropriate mood and affect Abdomen: Gravid. heart rate: Category 1. Baseline 120 beats per minute, moderate variability, several qualifying 15 x 15 accelerations seen, no decelerations. Bushnell: Arben about every 3 minutes Cervix: 4.5/70-1. AROM performed with return of clear fluid, uncomplicated. Vital Signs: Last Vital Signs Temp 97.8 F 06/02/25 07:34 Pulse 96 06/02/25 08:39 Resp 16 06/02/25 07:34 BP 130/76 06/02/25 08:39 Pulse Ox 98 06/02/25 03:59 Plan Plan: Jayda is a 29yo at 36w4d GA ongoing IOL due to preeclampsia with severe features. She is a 29 year old at 36.3 weeks gestation. 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 Serial HELLP labs have demonstrated interval stability. She is ongoing magnesium sulfate for seizure prophylaxis. IOL has included Cook catheter and Pitocin. Cervix is now 4.5/70/-1 where AROM was performed after discussion of risks/benefits. - Anticipate next cervical exam in 4 hours, sooner as clinically indicated. - Pain control per patient preference/anesthesia. Epidural catheter is in place, infusion currently turned. Patient can resume alongside HUMAN SERVICES ASSISTANT pending discussion. - Diligent BP monitoring ongoing, patient has not required any longer short-acting antihypertensives. Serial preeclampsia labs have been within normal limits. Magnesium sulfate ongoing, 2 grams/hour. - BT A+ - GBS negative - Pediatrics to attend delivery in the setting of preeclampsia with severe features and prematurity
[2025-06-02] MEDS: LACTATED RINGERS 1000 ML 1,000 ML 66 ML IV (09:29)
[2025-06-02] MEDS: LIDOCAINE 2% (PF) 5 ML VIAL EPIDURAL (09:42)
[2025-06-02] MEDS: ROPIVACAINE 0.2% 100 ml 100 ML 12 MG EPIDURAL (09:44)
[2025-06-02] MEDS: PHENYLEPHRINE 100 MCG/ML SYRINGE IVP ×13 (09:46→13:05)
[2025-06-02] MEDS: ONDANSETRON 2 MG/ML inj 4 MG IV (09:51)
--- NOTE | 2025-06-02 10:10 | P.ANBPRC_ITS ---
PFSH PFS Medical History Anxiety disorder with panic attacks ?F41.9 - Anxiety disorder, unspecified (ICD-10) Surgical History [place] teeth extracted ?K08.409 - Partial loss of teeth, unspecified cause, unspecified class (ICD- 10) Social History Narrative: SOCIAL??? 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 Partner: Mahad, SO??? Lives with: Mahad and Daughter, Sally??? Pets: 2 dogs and 1 cat Abuse: Denies past/present??? Special Diet: Denies??? Ok with a blood transfusion: yes??? Culture or yarsanism beliefs: denies? RISK FACTORS??? Exercise Times/wk: Walking, 5x per week??? Depression/Anxiety: Hx of??? WALKER: 0 PHQ 9: 0??? Seat Belt Use: Routinely?? Smoking: Denies present; Hx of smoking 5-10 years ago socially Alcohol/day: Denies while ??? Caffeine: Coffee morning up to 1x per day??? Drug Use: Denies past/present??? MRSA: Denies? What is your current living situation?: I presently have a place to live Problems where you live: no known problems In the past 12 months, utilities in danger of being shut off: no In past 12 months, lack of transportation kept you from medical appts, meetings, work, or getting things needed for daily living: no In the past 12 mos, have been you worried that your food would run out before you had money to buy more?: never true In the past 12 mos, the food you bought just didn't last and you didn't have money to buy more?: never true Smoking Status: Never smoker How often does anyone, including family, friends and others, physically hurt you : never How often does anyone, including family, friends and others, insult or talk down to you: never How often does anyone, including family, friends and others, threaten you with harm: never How often does anyone, including family, friends and others, scream or curse at you: never Meds Home Medications and Allergies Home Medications ?Medication ?Instructions ?Recorded ?Confirmed ?Type aspirin 81 mg tablet 81 mg PO QDAY 03/08/2506/01 History vit 168-iron 27 mg-folic 1 cap PO DAILY 03/0806/01/25 History acid 800 mcg-omega3 235 mg capsule (One-A-Day -1) omeprazole 20 mg capsule,delayed 20 mg PO QDAY #30 cap s 04/22/25 06/01/25 Rx release Allergies Allergy/AdvReac Type Severity Reaction Status Date / Time iron dextran complex (From Allergy Severe Difficulty Verified 06/01/25 11:45 Infed) Breathing Results Labs Labs: Laboratory Results - last 24 hr 06/01/25 06/01/25 06/01/25 11:55 18:43 18:54 WBC 10.40 10.47 RBC 3.57 L 3.61 L Hgb 10.5 L 10.6 L Hct 32.2 L 32.4 L MCV 90 90 MCH 29 29 MCHC 33 33 Plt Count 270 298 BUN 7 6 Creatinine 0.7 0.6 Estimated Creat Clear 110.41 Estimated GFR 121 125 Magnesium 4.9 H* AST 30 32 ALT 20 19 Blood Type A Positive Antibody Screen NEGATIVE 06/01/25 06/02/25 06/02/25 20:58 00:30 07:30 WBC 9.44 11.18 H 10.83 RBC 3.12 L 3.09 L 3.25 L Hgb 9.3 L 9.2 L 9.9 L Hct 28.1 L 27.8 L 29.2 L MCV 90 90 90 MCH 30 30 31 MCHC 33 33 34 Plt Count 255 241 241 BUN Cancelled 6 6 Creatinine Cancelled 0.6 0.6 Estimated Creat Clear Cancelled 110.41 110.41 Estimated GFR Cancelled 125 125 Magnesium 5.5 H* 5.5 H* 6.2 H* AST Cancelled 29 30 ALT Cancelled 18 16 Blood Type Antibody Screen Vital Signs Vital Signs: Last Vital Signs Temp 97.8 F 06/02/25 07:34 Pulse 107 H 06/02/25 10:09 Resp 16 06/02/25 07:34 BP 126/62 06/02/25 10:09 Pulse Ox 97 07/30/25 10:08 Weight: 80.739 kg Height: 157.48 cm Anesthesia Procedures Epidural Insertion Patient Location: OB Reason for Block: procedure for pain Patient Position: sitting Performed By: Kimberley Pardo Preanesthetic Checklist: IV checked, risks and benefits discussed, monitors and equipment checked, pre-op evaluation, timeout performed and anesthesia consent Prep: chlorhexidine gluconate Monitoring: blood pressure monitoring, continuous pulse oximetry and heart rate Approach: midline Vertebral Space: lumbar (1-5) Epidural Technique: JESU saline Needle Type: Tuohy needle Injection Technique: continuous catheter (continuous catheter) Needle gauge: 17 Needle Length (cm): 10 cm Needle Insertion Depth (cm): 7 Catheter Gauge: 19 Catheter Type: multi-orifice Catheter at skin depth (cm): 15 Test Dose Result: negative and lidocaine 1.5% with epinephrine 1 to 200,000
[2025-06-02] MEDS: ePHEDrine sulfate 5 MG/ML inj 10 MG IVP (10:15)
[2025-06-02] MEDS: LACTATED RINGERS 1000 ML 1,000 ML 125 ML IV (10:45)
[2025-06-02] MEDS: OMEPRAZOLE 20 MG CAPSULE DR PO (10:51)
[2025-06-02] MEDS: CALCIUM CARBONATE 500 MG CHEW PO (10:53)
[2025-06-02] MEDS: MAGNESIUM Infusion 40 GM/1,000 ML IV.SOLN IVPB (12:25)
[2025-06-02 13:58] LABS: Hematocrit* 29.8 % (33.0-51.0); Hemoglobin* 9.9 gm/dL (12.0-16.0); Mean Corpuscular HGB Conc 33 gm/dL (32-36); Mean Corpuscular Hemoglobin 30 pg (26-34); Mean Corpuscular Volume 90 fL (80-100); Red Blood Count* 3.33 m/uL (4.00-5.20); White Blood Count* 11.23 K/uL (4.50-11.00)
[2025-06-02 14:13] LABS: Slide Review Reflex No
[2025-06-02 14:17] LABS: Alanine Aminotransferase* 19 U/L (4-35); Aspartate Amino Transferase* 35 U/L (12-35); Blood Urea Nitrogen* 5 mg/dL (5-24); Creatinine* 0.7 mg/dL (0.5-1.5); Est. Creatinine Clearance* 94.63; Estimated Glomerular Filt Rate 121 ml/min
[2025-06-02] MEDS: lidocaine HCL 2 % JELLY (TOP) STERILE 6 ML TOPICAL (14:25)
--- NOTE | 2025-06-02 15:55 | W.PM.VAGD1_ITS ---
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 She was started on magnesium sulfate for seizure prophylaxis, diligent BP monitoring and serial preE labs ongoing. is otherwise complicated by asthma, anxiety and anemia. heart tones on admission were category 1. Her labor was induced with Cook catheter, augmented with Pitocin and amniotomy. Epidural was utilized for pain management. Status of bag of lamas: AROM occurred intrapartum, clear fluid. heart tones during active labor were category 1 and 2. She was complete at 1344 and started pushing at 1345. She made excellent descent throughout the second stage of labor, and had a normal spontaneous vaginal delivery at 1415. heart tones during second stage of labor were category 1. Baby delivered OA, where turtling was noted and restitution did not occur spontaneously. head was manually restituted to MARTIN, where gentle traction was applied along with a maternal expulsive effort. No descent of the anterior shoulder was noted, where she was placed into high lithotomy position and a second attempt to deliver the anterior shoulder was attempted and unsuccessful. Shoulder dystocia was diagnosed. Patient was rapidly repositioned into McRobert's position, suprapubic pressure was applied. These efforts were unsuccessful at alleviating the obstructed anterior shoulder. As such, I proceeded to delivery of the posterior arm. The left arm was noted to be e xtended alongside the body, gently was swept toward the abdomen and pressure was applied to flex the arm at the elbow. The arm was swept over the baby's chest and face resulting in delivery of the posterior arm. The anterior shoulder then readily delivered with a maternal pushing effort and gentle downward traction. Nuchal cord was absent. Baby was placed on maternal abdomen. The cord was clamped and cut immediately to allow for Pediatrics resuscitation in the setting of nonvigorous after a shoulder dystocia. Active management of the third stage occurred with IV pitocin and gentle cord traction and the placenta delivered spontaneous and intact at 1440. Cord gases sent: yes Cord blood sent for infant ABO: no details: - Liveborn male fetus at 1415 - weight 7lb 13 oz, large for GA - APGARs were 8 and 9 at 1 and 5 minutes respectively - ABG with pH of 7.38, CO2 39, bicarb 23, base excess -1.9. Normal cord gas. - Facial bruising noted, moving both extremities. No apparent fracture or brachial plexopathy per Pediatrics provider. Please see their note for complete details. Perineum and vagina were inspected, and the following lacerations were noted: none. No repair was required. Excellent hemostasis was noted. The following counts were correct: sponges, needles, instruments. Mother and infant in stable condition following the . Debrief of her delivery and shoulder dystocia was completed. All questions answered. [place] Infant Gender: Male presentation: vertex Placental Delivery Description: Spontaneous Cord Description: 3 Vessels
[2025-06-02] MEDS: IBUPROFEN 600 MG TABLET PO (17:18)
[2025-06-02 19:55] LABS: Blood Urea Nitrogen* 5 mg/dL (5-24); Creatinine* 0.7 mg/dL (0.5-1.5); Est. Creatinine Clearance* 94.63; Estimated Glomerular Filt Rate 121 ml/min
[2025-06-02 19:56] LABS: Alanine Aminotransferase* 17 U/L (4-35); Aspartate Amino Transferase* 33 U/L (12-35)
[2025-06-02 20:23] LABS: Hematocrit* 28.7 % (33.0-51.0); Hemoglobin* 9.7 gm/dL (12.0-16.0); Mean Corpuscular HGB Conc 34 gm/dL (32-36); Mean Corpuscular Hemoglobin 30 pg (26-34); Mean Corpuscular Volume 89 fL (80-100); Red Blood Count* 3.21 m/uL (4.00-5.20); White Blood Count* 15.98 K/uL (4.50-11.00)
[2025-06-02] MEDS: LACTATED RINGERS 1000 ML 1,000 ML 75 ML IV (20:39)
[2025-06-02 20:49] LABS: Slide Review Reflex No
[2025-06-03] VITALS (9 sets, daily range): BP systolic 117–130; BP diastolic 68–84; PULSE 66–92; RESP 16–22; TEMP 36.7–37.1; O2SAT 97–100
[2025-06-03] MEDS: IBUPROFEN 600 MG TABLET PO ×3 (04:30→18:21)
[2025-06-03 05:44] LABS: Hemoglobin* 8.6 gm/dL (12.0-16.0)
[2025-06-03 08:39] LABS: Hematocrit* 29.7 % (33.0-51.0); Hemoglobin* 9.7 gm/dL (12.0-16.0); Mean Corpuscular HGB Conc 33 gm/dL (32-36); Mean Corpuscular Hemoglobin 30 pg (26-34); Mean Corpuscular Volume 91 fL (80-100); Red Blood Count* 3.27 m/uL (4.00-5.20); White Blood Count* 12.74 K/uL (4.50-11.00)
[2025-06-03 08:41] LABS: Slide Review Reflex No
[2025-06-03 09:05] LABS: Alanine Aminotransferase* 18 U/L (4-35); Aspartate Amino Transferase* 34 U/L (12-35); Creatinine* 0.8 mg/dL (0.5-1.5); Est. Creatinine Clearance* 82.80; Estimated Glomerular Filt Rate 103 ml/min
[2025-06-03] MEDS: DOCUSATE SODIUM 100 MG CAPSULE PO (09:41)
[2025-06-03] MEDS: MAGNESIUM Infusion 40 GM/1,000 ML IV.SOLN IVPB (09:43)
--- NOTE | 2025-06-03 12:50 | P.OBPN_ITS ---
OB - PN:Subj Subjective Time Seen by Provider: 08:05 Date Seen: 06/03/25 Patient comments OB post-: no complaints, pain well controlled and tolerating diet [place] infant status: [place] feeding status: exclusively Narrative: Jayda notes some swelling in both of her feet. Denies headache, visual disturbance, RUQ pain and N/V. Tolerating a regular diet. Cramping is controlled with ibuprofen and Tylenol. Looking forward to having the magnesium discontinued. and supplementing. Planning discharge home tomorrow. Preeclampsia labs have been normal. OB - PN: Obj Exam Physical Exam: Vital signs: Temp Pulse Resp BP Pulse Ox O2 Del Method 98.0 F 67 16 126/79 97 Room Air 06/03/25 12:00 06/03/25 12:00 06/03/25 12:00 06/03/25 12:00 06/03/25 12:00 06/03/25 12:00 Narrative: General: Pleasant, , well groomed woman in no acute distress. Vital signs: Included in her electronic medical record. Heart: Regular rate and rhythm without gallop, rub or murmur. Chest: Clear to auscultation bilaterally. Abdomen: Soft, nontender and nondistended with normal bowel sounds throughout. No CVA or flank tenderness. Fundus is firm 2 cm below the umbilicus in the midline. Extremities: No pain. Trace to 1+ bilateral lower extremity edema to the ankle. OB - PN: Obj Data Labs Labs: Laboratory Results - last 24 hr 06/01/25 06/02/25 06/02/25 18:43 13:35 19:33 WBC 11.23 H 15.98 H RBC 3.33 L 3.21 L Hgb 9.9 L 9.7 L Hct 29.8 L 28.7 L MCV 90 89 MCH 30 30 MCHC 33 34 Plt Count 276 285 BUN 5 5 Creatinine 0.7 0.7 Estimated Creat Clear 94.63 94.63 Estimated GFR 121 121 Magnesium 6.3 H* 6.5 H* AST 35 33 ALT 19 17 RPR Screen Non Reactive 06/03/25 06/03/25 05:12 08:08 WBC 12.74 H RBC 3.27 L Hgb 8.6 L 9.7 L Hct 29.7 L MCV 91 MCH 30 MCHC 33 Plt Count 299 BUN Creatinine 0.8 Estimated Creat Clear 82.80 Estimated GFR 103 Magnesium 6.4 H* AST 34 ALT 18 RPR Screen OB - PN: A/P Delivery Assessment and Plan (1) Severe pre-eclampsia: Status: Acute Assessment and Plan: Continue magnesium until 2:15 p.m. today Continue to monitor blood pressure closely. Preeclampsia labs have been normal. Patient would like to be discharged home tomorrow.
--- NOTE | 2025-06-03 12:52 | PM.ANPOST ---
Post Anesthesia Note Post Anesthesia Note Patient seen: Inpatient Respiratory Status: adequate Cardiovascular Status: adequate Mental Status: baseline Pain: adequate Temp: baseline Anesthetic awareness: no Complications: none Follow care: none
[2025-06-03] MEDS: ACETAMINOPHEN 500 MG TABLET 1000 MG PO ×2 (14:45→22:27)
[2025-06-04 04:35] VITALS: BP 130/88; PULSE 72; RESP 16; O2SAT 98
[2025-06-04 05:40] LABS: Hematocrit* 28.7 % (33.0-51.0); Hemoglobin* 9.3 gm/dL (12.0-16.0); Mean Corpuscular HGB Conc 32 gm/dL (32-36); Mean Corpuscular Hemoglobin 30 pg (26-34); Mean Corpuscular Volume 92 fL (80-100); Red Blood Count* 3.11 m/uL (4.00-5.20); White Blood Count* 9.38 K/uL (4.50-11.00)
[2025-06-04 05:43] LABS: Slide Review Reflex No
[2025-06-04 05:53] LABS: Alanine Aminotransferase* 18 U/L (4-35); Aspartate Amino Transferase* 33 U/L (12-35); Creatinine* 0.9 mg/dL (0.5-1.5); Est. Creatinine Clearance* 73.60; Estimated Glomerular Filt Rate 89 ml/min
[2025-06-04] MEDS: IBUPROFEN 600 MG TABLET PO (07:46)
[2025-06-04 07:50] VITALS: BP 135/98; PULSE 65; RESP 17; TEMP 36.8; O2SAT 99
[2025-06-04 08:11] VITALS: BP 129/83
--- NOTE | 2025-06-04 08:12 | PM.OBPNVD1 ---
OB - PN:Subj Subjective Date Seen: 06/04/25 Patient comments OB post-: no complaints and tolerating diet status: Narrative: The patient is a 29-year-old 3 now para 1112 who is day #2 following a spontaneous vaginal delivery at 36 5/7 weeks gestation. Labor was induced for preeclampsia with severe features. Blood pressures overnight were 120s to 130s over 70s to 80s, though her most recent blood pressure this morning was 135/98. She is not currently on any antihypertensive medication. She feels well, though really was not able to sleep much overnight because of sleep interruptions and beeping of an infant monitor. Her is doing well, but had a high serum bilirubin level this morning. He will be reassessed at noon. OB - PN: Obj Exam Physical Exam: Vital signs: Temp Pulse Resp BP Pulse Ox O2 Del Method 98.3 F 65 17 129/83 99 Room Air 06/04/25 07:50 06/04/25 07:50 06/04/25 07:50 06/04/25 08:11 06/04/25 07:50 06/04/25 04:35 Constitutional: Constitutional: no acute distress Routine Neck Exam: Neck: Present normal inspection Routine Respiratory Exam: Respiratory: Present CTA bilaterally; Absent respiratory distress Routine Cardiovascular Exam: Cardiovascular: Present RRR; Absent murmur Routine Abdominal Exam: Abdominal: Present soft; Absent tenderness Fundus: Present firm Routine Extremities Exam: Extremities: Present normal inspection and pedal edema (Mild); Absent calf tenderness Routine Neurological Exam: Neurological: Present alert and oriented X3 Routine Psychiatric Exam: Psychiatric: Present normal affect OB - PN: Obj Data Labs Labs: Laboratory Results - last 24 hr 06/03/25 06/04/25 08:08 05:15 WBC 12.74 H 9.38 RBC 3.27 L 3.11 L Hgb 9.7 L 9.3 L Hct 29.7 L 28.7 L MCV 91 92 MCH 30 30 MCHC 33 32 Plt Count 299 303 Creatinine 0.8 0.9 Estimated Creat Clear 82.80 73.60 Estimated GFR 103 89 Magnesium 6.4 H* AST 34 33 ALT 18 18 OB - PN: A/P Delivery Assessment and Plan (1) Severe pre-eclampsia: Status: Acute (2) Acute on chronic anemia: Problem details: Hemoglobin 9.3 on 06/04/2025 Status: Acute Plan day: 2 Plan: routine care Comments: Will reassess for discharge this afternoon. If blood pressures continue to be mildly elevated, will initiate oral antihypertensive medication. We discussed home monitoring of blood pressure.
[2025-06-04 12:20] VITALS: BP 124/79; PULSE 65; RESP 17; TEMP 37.3
--- NOTE | 2025-06-04 14:02 | P.DS_ITS ---
DS: Providers Provider Date Seen: 06/04/25 Date of admission: 06/01/25 14:58 Primary care physician: Not a Local Provider Admitting Clinician: Eliana Mccloud MD Attending Physician on discharge: Arlet Maria MD Date of Discharge: 06/04/25 DS: Diagnosis Discharge Diagnosis (1) Severe pre-eclampsia: Status: Acute (2) Acute on chronic anemia: Status: Acute Problem details: Hemoglobin 9.3 on 06/04/2025 (3) Vaginal delivery: Status: Acute Exam Const: Vital Signs, click to edit/add: Vital Signs - 24 hr 06/03/25 14:20 06/03/25 16:15 06/03/25 19:56 Temperature 98.1 F 98.8 F Pulse Rate [Pulse Oximeter] 92 67 69 Respiratory Rate 16 16 18 Blood Pressure [Ri ght Arm] 128/78 130/84 124/84 Pulse Oximetry 98 100 98 Oxygen Delivery Me thod Room Air Room Air Room Air 06/03/25 23:41 06/04/25 04:35 06/04/25 07:50 Temperature 98.3 F Pulse Rate [Pulse Oximeter] 66 72 65 Respiratory Rate 22 16 17 Blood Pressure [Ri ght Arm] 117/68 130/88 135/98 H Pulse Oximetry 98 98 99 Oxygen Delivery Me thod Room Air Room Air 06/04/25 08:11 06/04/25 12:20 Temperature 99.2 F Pulse Rate [Pulse Oximeter] 65 Respiratory Rate 17 Blood Pressure [Ri ght Arm] 129/83 124/79 Pulse Oximetry Oxygen Delivery Me thod Room Air Documenting provider has reviewed patient's vital signs: yes Common normals: no apparent distress and oriented x3 General appearance: cooperative and comfortable HENMT: Common normals: normocephalic Head and scalp: normocephalic Resp: Common normals: normal respiratory effort Cardio: Common normals: regular rate and regular rhythm Rate: regular rate Rhythm: regular rhythm GI: Common normals: soft to palpation and non-tender Inspection: normal to inspection Palpation: soft Extremity: Common normals: normal to inspection and no pedal edema Neuro: Common normals: oriented x3 Psych: Common normals: affect normal OB - DS: Summary Hospital Course Hospital Course: The patient is a 29-year-old 3 now para 1112 who is day #2 following a spontaneous vaginal delivery at 36 5/7 weeks gestation. Labor was induced for preeclampsia with severe features. She has not required antihypertensive medication since delivery. She is breast feeding. the patient has done well. Peripartum Data Infant delivery method: Vaginal Laceration description: None Episiotomy description: None Gender: Male Discharge Plan: Home Status at Discharge Functional status at discharge: independent ambulation Overall status at discharge: patient is back to baseline Time Spent with Patient Time attestation: Total time spent providing and/or coordinating discharge services: Discharge Plan Discharge Disposition: Home, Self-Care Date of Admission: 06/01/25 14:58 Attending Provider on Discharge: Arlet Maria Primary Care Provider: Provider,Not a Local Condition: Stable Anticipated Discharge Date/Time: 06/04/25 14:06 Discharge Medications: New docusate sodium 100 mg Capsule 100 mg PO DAILY Qty: 30 0RF ibuprofen 600 mg Tablet 600 mg PO Q6H PRNQty: 30 0RF Continued aspirin 81 mg tablet 81 mg PO QDAY One-A-Day -1 27 mg iron- 800 mcg-235 mg capsule 1 cap PO DAILY omeprazole 20 mg capsule,delayed release(DR/EC) 20 mg PO QDAY Qty: 30 0RF Discharge Orders: Discharge Order (Routine); Ordered 06/04/25 Ordered By: Arlet Maria Patient Education: OB High Blood Pressure DC, OB Over the Counter Medication Information, OB Vaginal/Breast Feeding Additional Instructions: Patient verbalized understanding of reviewed discharge instructions. Follow up early next week in [facility] for BP check. Activity Level: Activity as Tolerated Discharge Diet: Regular Follow Up Appointments: Provider,Not a Local [Primary Care Provider, Family Practice] Forms: [employer] Info Instructions DS:Data Additional Comments Additional comments: hemoglobin 9.3.
== END 2025-06-04 16:15 | disposition home or self-care (01) | DRG 807 ==
LOC: OB OUT 14:59 → OB 14:59
PROVIDERS: Obstetrics & Gynecology; Admitting Provider Obstetrics & Gynecology; Visit Provider Obstetrics & Gynecology
DX: O14.14 Severe pre-eclampsia complicating childbirth (principal); Z37.0 Single live birth; O66.0 Obstructed labor due to shoulder dystocia; O36.63X0 Maternal care for excessive fetal growth, third trimester, not applicable or unspecified; O99.02 Anemia complicating childbirth; D64.9 Anemia, unspecified; O99.344 Other mental disorders complicating childbirth; F41.9 Anxiety disorder, unspecified; J45.909 Unspecified asthma, uncomplicated; Z3A.36 36 weeks gestation of pregnancy
CPT/HCPCS: 01967; 36415; 59200; 82565; 83735; 84450; 84460; 84520; 85018; 85027; 86592; 86850; 86900; 86901; 88307; A9270; C1726; J2270; J2405; J2795; J3010; J3475; J7120

== ENCOUNTER 2025-06-05 10:12 | Inpatient (IN) | payer OTHER, MEDICAID, SELFPAY ==
--- OUTSIDE RECORDS SUMMARY | 2025-05-20 11:22 | XMS_ITS | Encounter Summary ---
Author Organization [facility] Address [address] [place] [address] Care Team Providers Care General Practice Name Role Phone Elsewhere, Pcp Primary Care Provider Unavailabl e Reason for Visit * Reason Comments Hypertension Patient presents for high blood pressures 141/97, 138/93. Patient is 35 weeks and feeling movement however feels movements are not as frequent Encounter Details Date Type Department Care Team (Late st Contact Info) Description 05/20/2025 11:22 AM CDT - 05/20/2025 12:10 PM CDT Emergency [facility] [address] [place] [phone] Cm Mendiola M.D. [address] [place] [phone] Hypertension Gestational (HCC) (Primary Dx) Discharge Disposition: Home or Self Care Social History Tobacco Use Types Packs/Day Years Used Date Smoking Tobacco: Former Smokeless Tobacco: Former Alcohol Use Standard Drinks/Week Comments Not Currently 0 (1 standard drink = 0.6 oz pure alcohol) recenlty 6-8 drinks/day for last few months [facility] Utilities Answer Date Recorded In the past 12 months has e electric, gas, oil, or water company threatened to shut off services in your home? No 11/11/2024 Hunger Vital Sign Answer Date Recorded Within the past 12 months, y ou worried that your food would run out before you got the money to buy more. Never true 11/11/19 25 Within the past 12 months, t he food you bought just didn't last and you didn't have money to get more. Never true 11/11/2024 PRAPARE - Transportation Answer Date Re corded In the past 12 months, has l ack of transportation kept you from medical appointments or from getting medications? No 06/2025 In the past 12 months, has l ack of transportation kept you from meetings, work, or from getting things needed for daily living? No 11/11/2024 Depression Answer Date Recor ded PHQ-9 Total Score (max 27) 0 12/14 Housing Stability Answer Date Recorded What is your living situation today? I have a [facility] [place] place to live 11/11/2024 Education Answer Date Recorded What is the highest level of school you have completed or the highest degree you have received? Some college, no degree 12/14/2024 Estimated Date of Delivery Comme nts Yes 06/26/2025 Based on last me nstrual period of 09/19/2024 (Exact Date) Sex and Gender Information Value Date Recorded Sex Assigned at Female 04/09/2025 8:26 AM CDT Legal Sex Female 4:11 PM CDT Gender Identity Female 04/09/2025 8:26 AM CDT Sexual Orientation Straight 04/09/2025 8: 26 AM CDT documented as of this encounter Last Filed Vital Signs Vital Sign Reading Time Taken Comments Blood Pressure 135/89 05/20/2025 12:00 PM CDT Pulse 99 05/20/2025 12:00 PM CDT Temperature 36.8 C (98.2 F) 05/20/2025 11:25 AM CDT Respiratory Rate 18 05/20/2025 12:00 PM CDT Oxygen Saturation 98% 05/20/2025 12:00 PM CDT Inhaled Oxygen Concentration - - Weight 79.9 kg (176 lb 1.6 oz) 05/20/2025 11:26 AM CDT Height - - Body Mass Index 31.6 04/09/2025 8:25 AM CDT documented in this encounter Discharge Instructions * Discharge Instructions* Cm Mendiola M.D. - 05/20/2025 12:09 PM CDT Discharge Instructions for Gestational Hypertension Medication Management: Labetalol Dose: 200-2400 mg/day Route: Oral Frequency: In two to three divided doses??. Nifedipine ER Dose: 30-120 mg/day Route: Oral Frequency: Once daily??. Methyldopa Dose: 0.5-3 g/day Route: Oral Frequency: In two to three divided doses??. Avoid: GELA inhibitors and ARBs due to teratogenicity??. Blood Pressure Monitoring: Aim to maintain blood pressure below 140/90 mmHg. Monitor blood pressure regularly at home and report any readings above 160/110 mmHg to your healthcare provider immediately??. Signs and Symptoms to Watch: Severe headaches, visual disturbances, or sudden swelling of hands and face. Report any new or worsening symptoms to your healthcare provider promptly??. Follow-Up Care: Schedule regular visits to monitor maternal and health. Discuss any concerns or changes in symptoms with your healthcare provider during these visits??. Lifestyle and Dietary Recommendations: Maintain a balanced diet low in salt. Engage in regular, moderate physical activity as advised by your healthcare provider. Avoid alcohol and smoking??. documented in this encounter Medications at Time of Discharge aspirin [address] tabletIndication s:Examination Normal First Trimester (HCC) Take 1 tablet (81 mg total) by mouth daily. Start between 12 and 16 weeks of 90 tablet 2 12/14/2024 docusate sodium (Colace) 100 mg capsule Take 100 mg by mouth daily. ferrous sulfate 324 mg (65 mg iron) DR tablet Take 65 mg of iron by mouth daily. idjiksu-Bk-adra- FA 27 mg iron- 1 mg tablet Take 1 tablet by mouth daily. omeprazole (PriLOSEC) [address] capsule Take 1 capsule by mouth daily. 04/23/2025 documented as of this encounter ED Notes * Cm Mendiola M.D. - 05/20/2025 11:31 AM CDT SUBJECTIVE CHIEF COMPLAINT/REASON FOR VISIT Hypertension (Patient presents for high blood pressures 141/97, 138/93. Patient is 35 weeks and feeling movement however feels movements are not as frequent ) HISTORY OF PRESENT ILLNESS The patient is a 29-year-old female, a currently 35 weeks with known history of gestational hypertension currently being monitored for preeclampsia presents emergency department for concern of elevated blood pressures at home. She reports home blood pressure of 141/97, 138/93, she repo rtedly called the [facility] and was advised to seek emergent medical care including callingan ambulance to presents to the hospital, elected to presents emergency department for screening and medical clearance to potentially go to [facility] as she has a appointment at 1:00 a.m.. Denies any significant severe headache, vaginal bleeding or discharge. She has no other the patient or diarrhea, reported to nursing staff some slight reduction activity. History provided by: Patient REVIEW OF SYSTEMS Constitutional: Negative for fever. HENT: Negative for sore throat. Eyes: Negative for visual disturbance. Respiratory: Negative for cough. Cardiovascular: Negative for leg swelling. Gastrointestinal: Negative for vomiting. Genitourinary: Negative for dysuria. Skin: Negative for rash. Neurological: Negative for headaches. Hematological: Does not bruise/bleed easily. ALLERGIES/MEDICATIONS: Reviewed in medical record. 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/08/2023 Asthma ([facility]) 04/14/2019 SURGICAL HISTORY Surgical History[2] FAMILY HISTORY Reviewed in chart SOCIAL HISTORY Social History[3] Social History Substance and Sexual Activity Alcohol Use Not Currently Comment: recenlty 6-8 drinks/day for last few months Social History Substance and Sexual Activity Drug Use Not Currently OBJECTIVE INITIAL VITAL SIGNS Initial Vitals Temperature 05/20/25 1125 36.8 ??C Pulse Rate 05/20/25 1126 87 Heart Rate -- Resp Rate 05/20/25 1126 16 Blood Pressure 05/20/25 1126 (!) 127/91 SpO2 05/20/25 1126 97 % Pain Score 05/20/25 1126 0 - No pain PHYSICAL EXAMINATION Constitutional: She appears not lethargic. No distress. HENT: Nose: No nasal discharge. Mouth/Throat: Mucous membranes are moist. Eyes: Conjunctivae are normal. Right eye exhibits no discharge. Left eye exhibits no discharge. Cardiovascular: Edema: no edema noted Pulmonary/Chest: Effort normal. Abdominal: exhibits no distension. Gravid uterus Musculoskeletal: General: No deformity. Normal range of motion. Neurological: Alert and oriented to person, place, and time. Skin: No rash noted. She is not diaphoretic. No cyanosis. No jaundice. Psychiatric: She has a normal mood and affect. ED COURSE ED Course as of 05/20/25 1218 Karen May 20, 2025 1138 We were notified by the [facility] regarding they are concern to have the patient cardiac cleared prior to her presenting for her OB appointment today related to her reported chest twinge. Given they recommended she seek ambulance transfer, and she did a lot not to use the ambulance transfer was advised to seek care at her local emergency department here in lieu of [facility]. 1139 CBC with Differential, Blood(!): Hemoglobin 10.8(!) Hematocrit 32.1(!) Erythrocytes 3.59(!) MCV 89.4 RBC Distrib Width 13.5 Platelet Count 324 Leukocytes 9.4 Neutrophils 6.69(!) Lymphocytes 1.96 Monocytes 0.63 Eosinophils 0.06 Basophils <0.04 Patient does have anemia in the setting of , usually decreases due to increased plasma volume leading to physiological anemia, no reported history of bleeding. 1144 ECG 12 Lead EKG shows what appears to be normal sinus rhythm with no ST changes suggesting acute ACS, nonspecific T-wave inversion in lead 3. 1201 Troponin T, Baseline with 2 Hour/6 Hour Reflex Biomarker Panel: Troponin T, Baseline, 5th gen <6 Troponin negative with low suspicion for ACS. 1202 Urinalysis with Microscopic if Indicated: Urine, Midstream: Source Urine, Urine, Midstream Clarity Clear Color, U Yellow Blood Negative Nitrite, U Negative Leukocyte Esterase Negative Protein Urine Random Negative Glucose Negative Ketones, QL(U) Negative Bilirubin Negative pH 6.5 Specific [place] 1.010 Urobilinogen 0.2 Urine negative for protein. 1203 No findings suggesting ACS, no proteinuria. 1207 Comprehensive Metabolic Panel(!): Potassium, P 3.5(!) Sodium, P 136 Chloride, P 104 Bicarbonate, P 18(!) Anion Gap, P 14 BUN (Blood Urea Nitrogen), P 7 Creatinine 0.61 Estimated GFR (eGFR) >90 Calcium, Total, P 9.2 Glucose, P 128 Protein, Total, P 6.6 Albumin, P 3.5 Aspartate Aminotransferase (AST), P 19 Alkaline Phosphatase, P 151(!) Alanine Aminotransferase (ALT), P 14 Bilirubin, Total, P <0.2 Patient has no significant evidence of proteinuria as mentioned, she also has no significant elevated liver function tests aside from minimally elevated alkaline phosphatase. No transaminitis noted, she has no evidence of thrombocytopenia on platelet count. At this juncture there was no signs of clear preeclampsia, concern for gestational hypertension. Blood pressure 135/89. At this juncture she is appropriate for discharged from our emergency department as she is going directly to her outpatient OB appointment that has scheduled an [facility] in unless than 1 hour. Patient will be discharged from our emergency department 1218 Patient discharged Final Diagnoses: as of 05/20/25 1218 Hypertension Gestational (HCC) INTERVENTIONS Medications - No data to display LABS Labs Reviewed COMPREHENSIVE METABOLIC PANEL, S/P - Abnormal Result Value Potassium, P 3.5 (*) Sodium, P 136 Chloride, P 104 Bicarbonate, P 18 (*) Anion Gap, P 14 BUN (Blood Urea Nitrogen), P 7 Creatinine 0.61 Estimated GFR (eGFR) >90 Calcium, Total, P 9.2 Glucose, P 128 Protein, Total, P 6.6 Albumin, P 3.5 Aspartate Aminotransferase (AST), P 19 Alkaline Phosphatase, P 151 (*) Alanine Aminotransferase (ALT), P 14 Bilirubin, Total, P <0.2 CBC WITH DIFFERENTIAL, B - Abnormal Hemoglobin 10.8 (*) Hematocrit 32.1 (*) Erythrocytes 3.59 (*) MCV 89.4 RBC Distrib Width 13.5 Platelet Count 324 Leukocytes 9.4 Neutrophils 6.69 (*) Lymphocytes 1.96 Monocytes 0.63 Eosinophils 0.06 Basophils <0.04 URINALYSIS WITH MICROSCOPIC IF INDICATED, U Source Urine, Urine, Midstream Clarity Clear Color Yellow Blood Negative Nitrite Negative Leukocyte Esterase Negative Protein Negative Glucose Negative Ketones, QI(U) Negative Bilirubin Negative pH 6.5 Specific [place] 1.010 Urobilinogen 0.2 TROPONIN T, BASELINE, 5TH GEN, P Troponin T, Baseline, 5th gen <6 ECG ECG 12 Lead Result Date: 05/20/2025 Normal sinus rhythm Normal ECG When compared with ECG of 26-Mar-2024 11:20, No significant change was found Reviewed by ILDA Umanzor RADIOLOGY No orders to display ASSESSMENT / PLAN ASSESSMENT/PLAN IMPRESSION AND PLAN Suzie Hunter is a 29 y.o. female presents for concern of gestational hypertension. Patient elected to presents to our emergency department in lieu of going to [facility] due to geographic proximity. On arrival blood pressure 127/91, rechecked 132/90. No signs of altered mentation or confusion, there was no evidence of seizures. At this juncture we will obtain comprehensive metabolic panel, CBC, urinalysis, blood pressure monitoring for further clarification as to whether or not she should exhibited symptoms suggesting a preeclampsia requiring intervention or treatment prior to potential transfer to [facility] versus if she is appropriate for discharge to her her 1:00 a.m. we will be clinic appointment. 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 01/08/2023 With Personal History Gestational Hypertension ([facility]) 01/13/2025 [2] Past Surgical History: Procedure Laterality Date DEBRIDEMENT AND IRRIGATION FOOT Left 2020 WISDOM TOOTH EXTRACTION Right [3] Social History Socioeconomic History Marital status: Single Number of children: 1 Years of education: 13 Highest education level: Some college, no degree Tobacco Use Smoking status: Former Smokeless tobacco: Former Vaping Use Vaping status: former use Substances: Nicotine Devices: Disposable Substance and Sexual Activity Alcohol use: Not Currently Comment: recenlty 6-8 drinks/day for last few months Drug use: Not Currently Sexual activity: Yes Partners: Male control/protection: None Social Drivers of Health Food Insecurity: No Food Insecurity (11/11/2024) Hunger Vital Sign Worried About Running Out of Food in the Last Year: Never true Ran Out of Food in the Last Year: Never true Transportation Needs: No Transportation Needs (11/11/2024) PRAPARE - Transportation Lack of Transportation (Medical): No Lack of Transportation (Non-Medical): No Housing Stability: Low Risk (11/11/2024) Housing Stability Housing: Living Situation: I have a steady place to live Cm Mendiola M.D. 05/20/25 1218 documented in this encounter Plan of Treatment Not on file documented as of this encounter Procedures Procedure Name Priority Date/Time Associated Diagnosis Comments URINALYSIS WITH MICROSCOPIC IF INDICATED, U STAT 05/20/2025 11:58 AM CDT ECG STAT 05/20/2025 11:42 AM CDT TROPONIN T, BASELINE, 5TH GEN, P STAT 05/20/2025 11:32 AM CDT CBC WITH DIFFERENTIAL, B STAT 05/20/2025 11:32 AM CDT COMPREHENSIVE METABOLIC PANEL, S/P STAT 05/20/2025 11:32 AM CDT documented in this encounter Results * Urinalysis with Microscopic if Indicated: Urine, Midstream (05/20/2025 11:58 AM CDT) Source Urine, Urine, Midstream 05/20/2025 11:58 AM CDT NPRG Clarity Clear Clear 05/20/2025 12:01 PM CDT NPRG Color Yellow 05/20/2025 12:01 PM CDT NPRG Comment: ----REFERENCE VALUE---- Colorless Yellow Mary Blood Negative Negative 05/20/2025 12:01 PM CDT NPRG Nitrite Negative Negative 05/20/2025 12:01 PM CDT NPRG Leukocyte Esterase Negative Negative 05/20/2025 12:01 PM CDT NPRG Protein Negative mg/dL 05/20/2025 12:01 PM CDT NPRG Comment: ----REFERENCE VALUE---- Negative Trace Glucose Negative Negative mg/dL 05/20/2025 12:01 PM CDT NPRG Ketones, QI(U) Negative Negative mg/dL 05/20/2025 12:01 PM CDT NPRG Bilirubin Negative Negative 05/20/2025 12:01 PM CDT NPRG pH 6.5 5.0 - 8.0 05/20/2025 12:01 PM CDT NPRG Specific [place] 1.010 1.001 - 1.035 05/20/2025 12:01 PM CDT NPRG Urobilinogen 0.2 0.2 - 1.0 mg/dL 05/20/2025 12:01 PM CDT NPRG Urine (Urine, Midstream) 05/20/2025 11:58 AM CDT 05/20/2025 11:58 AM CDT us Cm Mendiola M.D. LAB URINE ORDERABLES Fin al Result Performing Organization Address City/[facility]/ZIP Co de Phone Number [facility] [address] [place] [address], [facility] NPRG [facility] [address] [place] [address] * ECG 12 Lead (05/20/2025 11:42 AM CDT) Ventricular Rate ECG/Min [address] Interval 138 ms MUSE QRSD Interval 72 ms MUSE QT Interval 376 ms MUSE QTC Interval 428 ms MUSE P [place] 54 degrees MUSE R [place] 13 degrees MUSE T Wave [place] 8 degrees MUSE 05/20/2025 11:4 2 AM CDT 05/20/2025 11:44 AM CDT Impressions MUSE - 05/20/2025 11:44 AM CDT Normal sinus rhythm Normal ECG When compared with ECG of 26-Mar-2024 11:20, No significant change was found Reviewed by ILDA Umanzor Narrative Procedure Note Brent Santo M.D., Ph.D. - 05/20/2025 IMPRESSION: Normal sinus rhythm Normal ECG When compared with ECG of 26-Mar-2024 11:20, No significant change was found Reviewed by ILDA Umanzor Cm Mendiola M.D. ECG ORDERABLES Final Re sult Performing Organization Address City/[facility]/ZIP Co de Phone Number MUSE NA * Troponin T, Baseline with 2 Hour/6 Hour Reflex Biomarker Panel (05/20/2025 11:32 AM CDT) Troponin T, Baseline, 5th gen <6 <=10 ng/L 05/20/2025 12:00 PM CDT NPRG Blood (Blood, Venous) 05/20/2025 11:32 AM CDT 05/20/2025 11:48 AM CDT Cm Mendiola M.D. LAB BLOOD TROPONIN Final Result [facility] [address] [place] [address], [facility] NPRG [facility] [address] [place] [address] * (ABNORMAL) CBC with Differential, Blood (05/20/2025 11:32 AM CDT) Hemoglobin 10.8(L) 11.6 - 15.0 g/dL 05/20/2025 11:38 AM CDT NPRG Hematocrit 32.1(L) 35.5 - 44.9 % 05/20/2025 11:38 AM CDT NPRG Erythrocytes 3.59(L) 3.92 - 5.13 x10(12)/L 05/20/2025 11:38 AM CDT NPRG MCV 89.4 78.2 - 97.9 fL 05/20/2025 11:38 AM CDT NPRG RBC Distrib Width 13.5 12.2 - 16.1 % 05/20/2025 11:38 AM CDT NPRG Platelet Count 324 157 - 371 x10(9)/L 05/20/2025 11:38 AM CDT NPRG Leukocytes 9.4 3.4 - 9.6 x10(9)/L 05/20/2025 11:38 AM CDT NPRG Neutrophils 6.69(H) 1.56 - 6.45 x10(9)/L 05/20/2025 11:38 AM CDT NPRG Lymphocytes 1.96 0.95 - 3.07 x10(9)/L 05/20/2025 11:38 AM CDT NPRG Monocytes 0.63 0.26 - 0.81 x10(9)/L 05/20/2025 11:38 AM CDT NPRG Eosinophils 0.06 0.03 - 0.48 x10(9)/L 05/20/2025 11:38 AM CDT NPRG Basophils <0.04 0.01 - 0.08 x10(9)/L 05/20/2025 11:38 AM CDT NPRG Blood (Blood, Venous) 05/20/2025 11:32 AM CDT 05/20/2025 11:36 AM CDT Cm Mendiola M.D. LAB BLOOD ADD-ON Final R esult [facility] [address] [place] [address], [facility] NPRG [facility] [address] [place] [address] * (ABNORMAL) Comprehensive Metabolic Panel (05/20/2025 11:32 AM CDT) Potassium, P 3.5(L) 3.6 - 5.2 mmol/L 05/20/2025 12:06 PM CDT NPRG Sodium, P 136 135 - 145 mmol/L 05/20/2025 12:06 PM CDT NPRG Chloride, P 104 98 - 107 mmol/L 05/20/2025 12:06 PM CDT NPRG Bicarbonate, P 18(L) 22 - 29 mmol/L 05/20/2025 12:06 PM CDT NPRG Anion Gap, P 14 7 - 15 05/20/2025 12:06 PM CDT NPRG BUN (Blood Urea Nitrogen), P 7 6 - 21 mg/dL 05/20/2025 12:06 PM CDT NPRG Creatinine 0.61 0.59 - 1.04 mg/dL 05/20/2025 12:06 PM CDT NPRG Estimated GFR (eGFR) >90 >=60 mL/min/BS A 05/20/2025 12:06 PM CDT NPRG Comment: Estimated GFR calculated using the 2020 CKD_EPI creatinine equation. Calcium, Total, P 9.2 8.6 - 10.0 mg/dL 05/20/2025 12:06 PM CDT NPRG Glucose, P 128 70 - 140 mg/dL 05/20/2025 12:06 PM CDT NPRG Protein, Total, P 6.6 6.3 - 7.9 g/dL 05/20/2025 12:06 PM CDT NPRG Albumin, P 3.5 3.5 - 5.0 g/dL 05/20/2025 12:06 PM CDT NPRG Aspartate Aminotransferase (AST), P 19 8 - 43 U/L 05/20/2025 12:06 PM CDT NPRG Alkaline Phosphatase, P 151(H) 35 - 104 U/L 05/20/2025 12:06 PM CDT NPRG Alanine Aminotransferase (ALT), P 14 7 - 45 U/L 05/20/2025 12:06 PM CDT NPRG Bilirubin, Total, P <0.2 0.0 - 1.2 mg/dL 05/20/2025 12:06 PM CDT NPRG Blood (Blood, Venous) 05/20/2025 11:32 AM CDT 05/20/2025 11:36 AM CDT Cm Mendiola M.D. 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
[2025-06-05] VITALS (20 sets, daily range): BP systolic 113–149; BP diastolic 73–88; PULSE 55–123; RESP 16–18; TEMP 36.2–36.8; O2SAT 95–100; BMI 31.1
--- OUTSIDE RECORDS SUMMARY | 2025-06-05 10:14 | XMS_ITS | Clinical Summary ---
Author Organization [facility] Address [address] [place] [address] Care Team Providers Care Compliance Analyst Name Role Phone [facility] Allergies Active Allergy Reactions Criticality Noted Date Comments Amoxicillin Nausea and Vomiting,Rash Low 02/20/2017 Sulfamethoxazole-Trimethopri m Nausea and Vomiting 07/09/2019 Medications acetaminophen (TYLENOL) 325 MG tablet Take 325-650 mg by mouth 9 Active sertraline (ZOLOFT) 25 MG tablet Take 25 mg by mouth 9 Active ALBUTEROL IN Active HYDROcodone-alfredito taminophen (NORCO) 5-325 MG tabletIndicatio ns:Post-operati ve state Take 1-2 tablets by mouth every 6 hours as needed for moderate to severe pain 15 tablet 9 Active order for DMEIndications: Post-operative state rollabout (knee roller) 2 month duration 1 Device 9 Active Active Problems Problem Noted Date Diagnosed Date Post-operative state 07/09/2019 Encounters Date Type Department Care Team Description 05/05/2025 Transcribe Orders GENERIC EXTERNAL DATA DEPARTMENT Yamileth Sandhu MD Gestational proteinuria, third trimester (Primary Dx) 05/03/2025 Medical Correspondence [facility] [employer] Information Management [address] [place] [address] [address] [place] [address] Scan, Non-Provider from Last 3 Months Social History Tobacco Use Types Packs/Day Years Used Date Smoking Tobacco: Former Smokeless Tobacco: Never Alcohol Use Standard Drinks/Week Comments Yes 0 (1 standard drink = 0.6 oz pur e alcohol) Adolescent Education Answer Date Record ed Getting School Help Needed Not on file 08/18 Comments No Sex and Gender Information Value Date Recorded Sex Assigned at Not on file 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 Gender Identity Not on file Sexual Orientation Not on file Last Filed Vital Signs Vital Sign Reading Time Taken Comments Blood Pressure 110/71 04/28/2023 11:00 AM CDT Pulse 81 04/28/2023 11:00 AM CDT Temperature 36.7 C (98.1 F) 04/28/2023 11:00 AM CDT Respiratory Rate 16 04/28/2023 11:00 AM CDT Oxygen Saturation 99% 04/28/2023 11:00 AM CDT Inhaled Oxygen Concentration - - Weight 58.1 kg (128 lb) 04/28/2023 11:00 AM CDT Height 157.5 cm (5' 2) 04/28/2023 11:00 AM CDT Body Mass Index 23.41 04/28/2023 11:00 AM CDT Plan of Treatment Health Maintenance Due Date Last Done Comments ADVANCE CARE PLANNING 1996 ANNUAL REVIEW OF HM ORDERS 1996 HIV SCREENING 2011 HEPATITIS C SCREENING 2014 HEPATITIS B VACCINE (1 of 3 - 19+ 3-dose series) 2015 PAP 2017 YEARLY PREVENTIVE VISIT 05/09/2023 05/09/2022, 05/30 COVID-19 VACCINE ( - 2023- season) 2024 07/09/2021 PHQ-2 (once per calendar year) 2024 INFLUENZA VACCINE (#1) 2025 09/22/2018 DTAP/TDAP/TD VACCINE (5 - Td or Tdap) 02/09/2029 02/09/2019, 07/27/2017, 10/03/2001, Additional history exists ZOSTER VACCINE (1 of 2) 2046 HPV VACCINE (No Doses Required) Completed MENINGITIS VACCINE Aged Out No longer eligible based on patient's age to complete this topic PNEUMOCOCCAL VACCINE: PEDIATRICS (0 to 5 YEARS) AND AT-RISK PATIENTS (6 to 49 YEARS) Aged Out No longer eligible based on patient's age to complete this topic Insurance [facility] Address: [id number] [place] [id number] [facility] PROGRESSIVE Care Teams Compliance Analyst Relationship Specialty Start Date End Date [facility] [address] [place] [address] PCP - General 12/13/20
--- OUTSIDE RECORDS SUMMARY | 2025-06-05 10:14 | XMS_ITS | Encounter Summary ---
Author Organization [facility] Address [address] [place] [address]. [place] [address] Care Team Providers Care Restrooms Or Lounges Maid Name Role Phone Clinic, [facility] Primary Care Pro vider Reason for Referral * Consultation (Routine: Next available opening) - Pending Review Specialty Diagnoses / Procedures Referred By Marni coleman Referred To Contact Nephrology Diagnoses Gestational proteinuria, third trimester Yamileth Sandhu MD [facility] [address] [place] [address] Phone: tel: fax: Referral ID Status Reason Start Date Expiration Date V isits Requested Visits Authorized [id number] Pending Review 05/05/2025 05/05/2026 1 1 Question Answer Reason for Referral: Proteinuria Scheduling Instructions: [facility] will call you to coordinate your care as prescribed by the provider. If you don t hear from a senior outside sales representative within 2 business days, please call [phone]. Additional Information: Problem: Proteinuria affecting in third trimester Comments External referral transcribed from provider Dr. Yamileth Nash at [facility] - Comments to provider: History of preeclampsia in her first . Did not have baseline preeclampsia labs, transferred care to us at 24w6d. - [facility] will call you to coordinate your care as prescribed by the provider. If you don t hear from a senior outside sales representative within 2 business days, please call [phone]. 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 Gender Identity Not on file Sexual Orientation Not on file documented as of this encounter Plan of Treatment Scheduled Referrals Name Type Priority Associated Diagnoses Orde r Schedule Adult Nephrology Occupational Therapy Aide Referral Referral Routine: Next available opening Gestational proteinuria, third trimester Expected: 05/05/2025 (Approximate), Expires: 05/05/2026 documented as of this encounter Visit Diagnoses Diagnosis Gestational proteinuria, third trimester- Primary documented in this encounter Care Teams Restrooms Or Lounges Maid Relationship Specialty Start Date End Date Clinic, [address] [address] PCP - General 12/13/20 documented as of this encounter
--- OUTSIDE RECORDS SUMMARY | 2025-06-05 10:14 | XMS_ITS | Encounter Summary ---
Author Organization [facility] Address [address] [place] [address]. [place] [address] Care Team Providers Care Restorer Paper And Prints Name Role Phone Clinic, [facility] Primary Care Pro vider Encounter Details Date Type Department Care Team (Late st Contact Info) Description 05/03/2025 Medical Correspondence [facility] Information Management [address] [facility] [address] [place] [address] Scan, Non-Provider Social History Tobacco Use Types Packs/Day Years [...] on file Legal Sex Female 3:35 AM SHOCHET Gender Identity Not on file Sexual Orientation Not on file documented as of this encounter Plan of Treatment Not on file documented as of this encounter Visit Diagnoses Not on filedocumented in this encounter Care Teams Restorer Paper And Prints Relationship Specialty Start Date End Date Clinic, [facility] [address] [place], [place] [id number] PCP - General 12/13/20 documented as of this encounter
--- OUTSIDE RECORDS SUMMARY | 2025-06-05 10:14 | XMS_ITS | Clinical Summary ---
Author Organization [facility] Address [address] [place] [address] Care Team Providers Care Hvac Controls Technician Name Role Phone Elsewhere, Pcp Primary Care Provider Unavailabl e Source Comments Patient records contain information from all sites at [facility]. For routine questions regarding patient records, call [phone] during business hours, M-F 8:00 AM - 5:00 PM Central Time. Record requests for emergency care only can be directed to [phone] at any time.[facility] Allergies Active Allergy Reactions Criticality Noted Date Comments Amoxicillin Nausea And Vomiting,Rash,Nausea Only Low 02/20/2017 Sulfamethoxazole-Trimethopri m Nausea And Vomiting,Nausea Only 07/09/2019 Medications * This document contains information received from the source organization and may not represent a complete record from that organization. [id number] -FA 27 mg iron- 1 mg tablet Take 1 tablet by mouth daily. Active aspirin [address] tabletJosh ns:Examination Normal First Trimester (HCC) Take 1 tablet (81 mg total) by mouth daily. Start between 12 and 16 weeks of 90 tablet 2 5 Active docusate sodium (Colace) 100 mg capsule Take 100 mg by mouth daily. Active ferrous sulfate 324 mg (65 mg iron) DR tablet Take 65 mg of iron by mouth daily. Active omeprazole (PriLOSEC) [address] capsule Take 1 capsule by mouth daily. 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 Estimated Date of Delivery Comme nts Yes 06/26/2025 Based on last me nstrual period of 09/19/2024 (Exact Date) Resolved Problems Problem Noted Date Diagnosed Date Resolved Date Gestational Induce d Hypertension Without Significant Proteinuria Third Trimester 04/14/2019 04/09/2023 04/09/2023 Encounters Date Type Department Care Team Description 05/20/2025 11:22 AM CDT - 05/20/2025 12:10 PM CDT Emergency [facility] [address] [place] [address] Cm Mendiola M.D. Hypertension Gestational (HCC) (Primary Dx) Discharge Disposition: Home or Self Care 04/09/2025 8:40 AM CDT Comprehensive Visit Department of Family Medicine in [place], [place] [address] [facility] [place] [address] Robin Xie M.D. Well Adult Examination Normal (Primary Dx); Asthma (HCC) from Last 3 Months Immunizations Immunization Administration Dates Next Due DTaP (Infanrix, Tripedia) 10/03/2001 DTaP / Hib 10/20/1997 IPV 10/03/2001 MMR 10/03/2001,10/20/1997 Tdap 02/09/2019,07/27/2017 DAVID 04/28/2008,10/20/1997 influenza vaccine quad (FLUZ ONE/FLUARIX) (6 months and older)(PF) 09/22/2018 Family History * Patient is adopted Medical History Relation Name Comments Hyperlipidemia Father ( Father) No Known Problems Mother Relation Name Status Comments Father ( Father) Alive Mother Social History Tobacco Use Types Packs/Day Years Used Date Smoking Tobacco: Former Smokeless Tobacco: Former Tobacco Cessation:Counseling Given: Yes Alcohol Use Standard Drinks/Week Comments Not Currently 0 (1 standard drink = 0.6 oz pure alcohol) recenlty 6-8 drinks/day for last few months [facility] Utilities Answer Date Recorded In the past 12 months has th e electric, gas, oil, or water company [...] your living situation today? I have a [facility] place to live 11/11/2024 Education Answer Date [...] Orientation Straight 04/09/2025 8: 26 AM CDT Last Filed Vital Signs Vital Sign Reading Time Taken Comments Blood Pressure 135/89 05/20/2025 12:00 PM CDT Pulse 99 05/20/2025 12:00 PM CDT Temperature 36.8 C (98.2 F) 05/20/2025 11:25 AM CDT Respiratory Rate 18 05/20/2025 12:00 PM CDT Oxygen Saturation 98% 05/20/2025 12:00 PM CDT Inhaled Oxygen Concentration - - Weight 79.9 kg (176 lb 1.6 oz) 05/20/2025 11:26 AM CDT Height 159 cm (5' 2.6) 04/09/2025 8:25 AM CDT Body Mass Index 31.6 04/09/2025 8:25 AM CDT Plan of Treatment Health Maintenance Due Date Last Done Comments IPV Vaccines (2 of 3 - 4-dos e series) 10/31/2001 10/03/2001 Hepatitis B Vaccines (1 of 3 - 19+ 3-dose series) 2015 Pneumococcal vaccine (0-49 y ears) (1 of 2 - PCV) 2015 Asthma Control Test Questionnaire 04/09/2023 HPV Vaccines (1 - 3-dose SCD M series) 2023 COVID-19 Vaccine (2 - 2023-2 5 season) 2024 07/09/2021 Asthma Action Plan 11/12/2024 11/12/2023 Tdap vaccine - (27- 36 weeks) (1 - Tdap) 03/27/2025 02/09/2019, 07/27/2017, 10/03/2001 Influenza Vaccine (#1) 2025 09/22/2018 Asthma Management/Exacerbati on Questionnaire (AMQ/AEQ) 04/09/2026 04/09/2025 Cervical/Vaginal Cancer Screening 12/14/2027 025, 05/30/2021 DTaP,Tdap,and Td Vaccines (5 - Td or Tdap) 02/09/2029 02/09/2019, 07/27/2017, 10/03/2001, Additional history exists Varicella Vaccines Completed 04/28/2008, 10/20/1997 Depression Screening (Annual PHQ-2) Completed 12/14/2024 HIV Screening Completed 12/14/2024 Hepatitis C Screening Completed 12/14/2024 RSV vaccine - (32-3 6 weeks) or 60+ years (No Doses Required) Completed Procedures Procedure Name Priority Date/Time Associated Diagnosis Comments URINALYSIS WITH MICROSCOPIC IF INDICATED, U STAT 05/20/2025 11:58 AM CDT ECG STAT 05/20/2025 11:42 AM CDT TROPONIN T, BASELINE, 5TH GEN, P STAT 05/20/2025 11:32 AM CDT CBC WITH DIFFERENTIAL, B STAT 05/20/2025 11:32 AM CDT COMPREHENSIVE METABOLIC PANEL, S/P STAT 05/20/2025 11:32 AM CDT HCV AB SCRN , S Routine 12/14/2024 11:35 AM FLOW MANAGER Examination Normal First Trimester (HCC) HIV-1/-2 AG AND AB SCRN, PLASMA Routine 12/14/2024 11:35 AM FLOW MANAGER Examination Normal First Trimester (HCC) THINPREP SCREEN HPV REFLEX Routine 12/14/2024 10:57 AM FLOW MANAGER Examination Normal First Trimester (HCC) from Last 3 Months or Most Recently Relevant to Health Maintenance Results * Urinalysis with Microscopic if Indicated: [...] 8.0 05/20/2025 12:01 PM CDT NPRG Specific [place]man 1.010 1.001 - 1.035 05/20/2025 12:01 PM CDT NPRG Urobilinogen 0.2 0.2 - 1.0 mg/dL 05/20/2025 12:01 PM CDT NPRG Urine (Urine, Midstream) 05/20/2025 11:58 AM CDT 05/20/2025 11:58 AM CDT Cm Mendiola M.D. LAB URINE ORDERABLES Fin al Result Performing Organization Address [facility] Co de Phone Number [facility] [address] [place] [address], [place] NPRG [facility] [address] [place] [address] * ECG 12 Lead (05/20/2025 11:42 AM CDT) Ventricular Rate ECG/Min 78 BPM MUSE MA Interval 138 ms MUSE QRSD Interval 72 ms MUSE QT Interval 376 ms MUSE QTC Interval 428 ms MUSE P [place] 54 degrees MUSE R [place] 13 degrees MUSE T Wave [place] 8 degrees MUSE 05/20/2025 11:4 2 AM [...] ORDERABLES Final Re sult Performing Organization Address [facility] Co de Phone Number MUSE NA * Troponin T, Baseline with 2 Hour/6 Hour Reflex Biomarker Panel (05/20/2025 11:32 AM CDT) Pathologist [facility] Troponin T, Baseline, 5th gen <6 <=10 ng/L 05/20/2025 12:00 PM CDT NPRG Blood (Blood, Venous) 05/20/2025 11:32 AM CDT 05/20/2025 11:48 AM CDT Cm Mendiola M.D. LAB BLOOD TROPONIN Final Result [facility] [address] [place] [address], [facility] NPRG [facility] [address] [place] [address] * (ABNORMAL) CBC with Differential, Blood (05/20/2025 11:32 AM CDT) Pathologist [facility] Hemoglobin 10.8(L) 11.6 - 15.0 g/dL 05/20/2025 [...] M.D. LAB BLOOD ADD-ON Final R esult [facility] [address] [place] [address], [place] NPRG [facility] [address] [place] [address] * (ABNORMAL) Comprehensive Metabolic Panel (05/20/2025 11:32 [...] 11:32 AM CDT 05/20/2025 11:36 AM CDT us Cm Mendiola M.D. LAB BLOOD ADD-ON Final R esult [facility] [address] [place] [address], [facility] NPRG [place] [address] [place] [address] * Hepatitis C Virus Antibody Screen (12/14/2024 11:35 AM FLOW MANAGER) HCV Ab Scrn , S Negative Negative 12/15/2024 10:25 AM FLOW MANAGER [facility] Comment: Consumption of high-dose biotin supplement within 12 hours of blood collection for this test can cause false-negative results. Blood (Blood, Venous) 12/14/2024 11:35 AM FLOW MANAGER 12/15/2024 8:05 AM FLOW MANAGER us Elisa Good APRN, C.N.P., M.S.N. LAB MICROBIO LOGY - BLOOD ORDERABLES Final Result [facility] [address] [place] [address] [facility] [address] [place] [address] * HIV-1/-2 Ag and Ab Scrn, Plasma (12/14/2024 11:35 AM FLOW MANAGER) HIV Ag/Ab Scrn, P Negative Negative 12/14/2024 4:52 PM FLOW MANAGER [facility] Comment: Negative result does not rule out HIV infection. If exposure to HIV infection occurred <14 days ago, contact the laboratory to request addition of HIV-1/HIV-2 RNA detection , Plasma (HPP12). HIV-1 p24 Ag Scrn, P Negative Negative 12/14/2024 4:52 PM FLOW MANAGER [facility] Comment: Negative result does not rule out HIV infection. If exposure to HIV infection occurred <14 days ago, contact the laboratory to request addition of HIV-1/HIV-2 RNA detection , Plasma (HPP12). HIV-1 Ab Scrn, P Negative Negative 12/14/2024 4:52 PM FLOW MANAGER [facility] Comment: Negative result does not rule out HIV infection. If exposure to HIV infection occurred <14 days ago, contact the laboratory to request addition of HIV-1/HIV-2 RNA detection , Plasma (HPP12). HIV-2 Ab Scrn, P Negative Negative 12/14/2024 4:52 PM FLOW MANAGER [facility] Comment: Negative result does not rule out HIV infection. If exposure to HIV infection occurred <14 days ago, contact the laboratory to request addition of HIV-1/HIV-2 RNA detection , Plasma (HPP12). Blood (Blood, Venous) 12/14/2024 11:35 AM FLOW MANAGER 12/14/2024 3:10 PM FLOW MANAGER us Elisa Good APRN, C.N.P., M.S.N. LAB MICROBIO LOGY - BLOOD ORDERABLES Final Result [facility] [address] [place] [address], [facility] in [place] [address] [place] [address] * ThinPrep Screen HPV Reflex (12/14/2024 10:57 AM FLOW MANAGER) 12/17/2024 11:10 AM FLOW MANAGER [facility] Report electronically signed by TERA Wetzel (ASCP) I verify that I have examined all relevant slides/materials for the specimen(s) and rendered or confirmed the diagnosis. 12/17/2024 11:10 AM FLOW MANAGER [facility] Gross Description Received specimen in a ThinPrep vial. 12/17/2024 11:10 AM FLOW MANAGER [facility] Pap Test Source Cervical/Endocervi good 12/17/2024 11:10 AM FLOW MANAGER [facility] Hormone Therapy/Contracep tives None/Not known 12/17/2024 11:10 AM FLOW MANAGER [facility] Interpretation Cervical/Endocervi good (ThinPrep): Satisfactory for Evaluation Partially obscuring inflammation Negative for Intraepithelial Lesion or Malignancy 12/17/2024 11:10 AM FLOW MANAGER [facility] Thin Prep Vial (Cervix/Endocerv ix) 12/14/2024 10:57 AM FLOW MANAGER 12/14/2024 2:41 PM FLOW MANAGER Elisa Good APRN C.N.P., M.S.N. LAB PAP PATH DX ORDERABLES Final Result Performing Organization Address [facility] Co de Phone Number [facility] [address] [place] [address], [facility] [address] [address] from Last 3 Months or Most Recently Relevant to Health Maintenance Insurance [facility] [employer] Care Teams Hvac Controls Technician Relationship Specialty Start Date End Date Elsewhere, Pcp PCP - General 02/25/22
--- OUTSIDE RECORDS SUMMARY | 2025-06-05 10:14 | XMS_ITS | Clinical Summary ---
Author Organization [facility] Address [address] [place] [address] Care Team Providers Care Vegetable Picker Name Role Phone Hayden Vail MD Primary Care Provider [phone] Allergies Active Allergy Reactions Criticality Noted Date Comments Amoxicillin Nausea,Rash Low 02/20/2017 Sulfamethoxazole-Trimethoprim Nausea 2018 Medications hydrOXYzine HCl (ATARAX) 25 mg oral tablet TAKE ONE-HALF TABLET BY MOUTH THREE TIMES A DAY NEEDED FOR ANXIETY 10/01/2022 Active galcanezumab-gn lm (EMGALITY) 120 mg/mL SubQ PnIj Inject 1 mL (120 mg) into the muscle every 30 (thirty) days. 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 Gender Identity Not on file Sexual Orientation Not on file Last Filed Vital Signs Vital Sign Reading Time Taken Comments Blood Pressure - - Pulse - - Temperature - - Respiratory Rate - - Oxygen Saturation - - Inhaled Oxygen Concentration - - Weight 59 kg (130 lb) 01/08/2023 8:57 AM EXPLOSIVES DETONATOR Height 157.5 cm (5' 2) 01/08/2023 8:57 AM EXPLOSIVES DETONATOR Body Mass Index 23.78 01/08/2023 8:57 AM EXPLOSIVES DETONATOR Plan of Treatment Health Maintenance Due Date Last Done Comments Hepatitis C Screening 1996 Pap Smear 1996 Anxiety Screening (WALKER-2) 1997 Depression Assessment (PHQ-2) 1997 Pneumococcal Vaccine (1 of 2 - PCV) 2015 COVID-19 Vaccine (2 - 2023-2 5 season) 2024 07/09/2021 Influenza Vaccine (#1) 2025 09/22/2018 Adult Tetanus Booster 02/09/2029 02/09/2019 , 07/27/2017 RSV Vaccines (1 - 1-dose 75+ series) 2071 Meningococcal B Vaccine Aged Out No l onger eligible based on patient's age to complete this topic Insurance [facility] Member Subscriber Plan / Payer (Ef fective 2022-Present) Name:Suzie Hunter Relation to Subscriber:Self Name:Suzie Hunter Payer ID:[id number] (NAIC) [id number] Type:Sticky[employer] Address: [address] [address] Care Teams Vegetable Picker Relationship Specialty Start Date End Date Hayden Vail MD [address] [place] [address] PCP - General 12/07/22
--- OUTSIDE RECORDS SUMMARY | 2025-06-05 10:14 | XMS_ITS | Clinical Summary ---
Author Organization [facility] Address [address] [place] [address] Care Team Providers Care Mobile Lab Technician Name Role Phone Devan Jones MD Primary Care Provider [phone] Source Comments You are receiving this document as you are listed as the primary care provider,follow-up provider, or the patient has been referred to you for consultation.This is in compliance with the Medicare andMedicaid EHR Incentive Program,which states Providers who transition their patient to another setting of careor provider of care or refers their patient to another provider of care shouldprovide summary care record for each transition of care or referral. [employer]Agent Allergies Active Allergy Reactions Criticality Noted Date Comments Amoxicillin Rash,Nausea And Vomiting Low 09/22/2018 Sulfamethoxazole-Trimethopri m Nausea And Vomiting 07/09/2019 Medications * This document contains information received from the source organization and may not represent a complete record from that organization. hydrOXYzine HCl (ATARAX) 25 MG tabletIndicatio ns:WALKER (generalized anxiety disorder) (HRC) Take 0.5 Tablets (12.5 mg) by mouth three times a day as needed for Anxiety. 90 Tablet 3 11/19/2022 Active LORazepam (ATIVAN) 0.5 MG tablet Take 1 Tablet (0.5 mg) by mouth daily as needed. 12/23/2023 Active gabapentin (NEURONTIN) 300 MG capsuleIndicati ons:Alcohol use disorder, moderate, dependence (HRC) Take 1-2 Capsules (300-600 mg) by mouth three times a day for 5 days, THEN 1 Capsule (300 mg) three times a day as needed. 40 Capsule 02/14/2024 Active Active Problems Problem Noted Date Diagnosed Date Panic disorder 11/12/2023 Intractable periodic headache syndrome 3 Alcohol use disorder, moderate, dependence 08/22 Asthma 04/14/2019 Anxiety and depression 09/22/2018 Overview (12/24/2023): States zoloft (50 mg only dose) makes anxiety worse, does not want to try other medications for fear will make anxiety worse, requests ativan from [place], states it's the only medications that works. Per chart review, also been on atarax, buspar Naltrexone for significant history of alcohol abuse Multiple ED visits Resolved Problems Problem Noted Date Diagnosed Date Resolved Date Depression 10/07/2018 12/24/2023 Overview (10/07/2018): remote history of cutting behavior and hospitalized x 1 for suicidal ideation, did not act on this Careplan: [facility] 09/30/2018 06/04/2019 Overview (10/07/2018): This patient is enrolled in the [facility] Program. The program provides patients with support, education, referrals and resources during their . Reason for enrollment: recently quit smoking, psychosocial support Next urine drug screen: Unsure. Not done at [facility] visit CPS report: No Family Home Visiting: Referral sent to [facility] on 10/07/18 Financial Situation: Will assess and refer as needed For more information, please contact Sarah Gregory, [facility] Specialist, at [phone]. Anxiety during 09/22/2018 Overview (11/30/2021): zoloft 75 mg helpful fall 2017, weaned off with . zoloft 75 mg helpful fall 2017, weaned off with . Supervision of normal first , antepartum 09/22/2018 04/30/2019 Nausea/vomiting in 09/22/2018 11/10/2018 Immunizations Immunization Administration Dates Next Due DTaP 10/03/2001 DTaP/Hib 10/20/1997 IPV (Polio) 10/03/2001 Influenza IIV4 (Quadrivalent) 0.5mL (23905) 09/04 MMR 10/03/2001,10/20/1997 Pfizer Monovalent 12+ Purple Top 07/09/2021 Tdap 02/09/2019,07/27/2017 Varicella 04/28/2008,10/20/1997 Family History * Patient is adopted Relation Name Status Comments Father Alive Mother Alive Social History Tobacco Use Types Packs/Day Years Used Date Smoking Tobacco: Former Cigarettes 0.1 10 0 11/04/2010 - 11/09/2020 Smokeless Tobacco: Never Tobacco Cessation:Counseling Given: Not Answered Alcohol Use Standard Drinks/Week Comments Yes 42 (1 standard drink = 0.6 oz pu re alcohol) 6-9 4.0% Beers/day Depression Answer Date Recor ded Last EPDS Total Score 16 12/12/2024 Last EPDS Self Harm Result Not on file 12/12 Comments No Sex and Gender Information Value Date Recorded Sex Assigned at Not on file Legal Sex Female 5:07 AM CDT Gender Identity Not on file Sexual Orientation Not on file 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 Not on file Not on file Not on file Last Filed Vital Signs Vital Sign Reading Time Taken Comments Blood Pressure 134/86 01/08/2024 8:51 AM TELEVISION PRESENTER Pulse 87 01/08/2024 8:51 AM TELEVISION PRESENTER Temperature 37 C (98.6 F) 01/08/2024 8:40 AM TELEVISION PRESENTER Respiratory Rate 20 05/31/2023 5:14 PM CDT Oxygen Saturation 100% 05/31/2023 5:14 PM CDT Inhaled Oxygen Concentration - - Weight 59.9 kg (132 lb) 02/14/2024 8:30 AM CDT Height 160 cm (5' 3) 02/14/2024 8:30 AM CDT Body Mass Index 23.38 02/14/2024 8:30 AM CDT Plan of Treatment Health Maintenance Due Date Last Done Comments HepB Vaccine (1) 2015 Pneumococcal Vaccine (1 of 2 - PCV) 2015 Adult Preventive Visit 05/09/2024 05/09/2022, 2020 Cervical Cancer Screening 05/30/2024 05/30/2021, Asthma ACT (score of 20 or higher) 06/10/2024 06/10/2023 COVID-19 Vaccine (2 - season) 2024 07/09/2021 Influenza Vaccine (#1) 2025 09/22/2018 DTaP/Tdap/Td Vaccine (5 - Tdap) 02/09/2029 02/09/2019, 07/27/2017, 10/03/2001, Additional history exists Zoster/Shingles Vaccine (1 of 2) 2046 Hib Vaccine Completed 10/20/1997 Varicella Vaccine Completed 04/28/2008, 10/20/1997 HIV Screening (Preventive Services) Completed 10/20/2018 Hep C Screening (Preventive Services) Completed 05/09/2022 Chlamydia Discontinued 12/14/2024, 05/05, 05/09/2022, Additional history exists HPV Vaccine Aged Out No longer eligi ble based on patient's age to complete this topic HepA Vaccine Aged Out No longer eligi ble based on patient's age to complete this topic MCV4 Vaccine Aged Out No longer eligi ble based on patient's age to complete this topic Meningococcal B Vaccine Aged Out No l onger eligible based on patient's age to complete this topic Procedures Procedure Name Priority Date/Time Associated Diagnosis Comments CHLAMYDIA & GC (14 YEARS & OLDER) Routine 05/31/2023 5:44 PM CDT Pelvic pain in female HEPATITIS C ANTIBODY, WITH REFLEX (ANTI-HCV) Routine 05/09/2022 9:14 AM CDT Need for hepatitis C screening test CYTOLOGY (PAP) Routine 05/30/2021 3:56 PM CDT Screening for malignant neoplasm of cervix HIV-1 P24 AND HIV-1/HIV-2 ANTIBODIES Routine 10/20/2018 12:36 PM TELEVISION PRESENTER Screening examination for venereal disease Encounter for supervision of normal first in first trimester from Last 3 Months or Most Recently Relevant to Health Maintenance Results * Chlamydia & GC (14 Years and Older): Vagina (05/31/2023 5:44 PM CDT) Pathologist [facility] Chlamydia Trachomatis STD Not Detected Not Detected 06/01/2023 9:43 PM CDT [facility] N. gonorrhoeae STD Not Detected Not Detected 06/01/2023 9:43 PM CDT [facility] Swab STD SPECIMEN FROM VAGINA / Unknown Non-blood Collection / Unknown 05/31/2023 5:44 PM CDT 05/31/2023 5:51 PM CDT Narrative [facility] - 06/01/2023 9:43 PM CDT Test performed by Food And Drug Research Scientist Mediated Amplification (TMA). Jesus Hernandez PA-C LAB_1 Final Resul t [facility] [address] [phone] * Hepatitis C Antibody, with Reflex (05/09/2022 9:14 AM CDT) Pathologist [facility] Hepatitis C Antibody Negative (Non Reactive) Negative (Non Reactive) 05/09/2022 4:50 PM CDT [facility] Comment:Antibodies to HCV no t detected. Does not exclude the possiblity of exposure to HCV. Blood Venipuncture / Unknown 05/09/2022 9:14 AM CDT 05/09/2022 9:14 AM CDT Kim Austin PA-C LAB_1 Final Result [facility] [address] [place], [place] [address] * PAP Test (05/30/2021 3:56 PM CDT) Pathologist [facility] Case Report Pap Case: [id number] Authorizing Provider: Manasa Martinez PA-C Collected: 05/30/2021 1556 Ordering Location: [facility] Received: 05/30/2021 1706 First Screen: Luly Marroquin, [place] (ASCP) Rescreen: Yamileth Sheth Specimen: Pap Test, Routine, Cervix/Endocervix 06/06/2021 9:31 AM CDT [facility] Pap Specimen Adequacy Satisfactory for evaluation, endocervical/ryan sformation zone component present. 06/06/2021 9:31 AM CDT [facility] Pap Interpretation Negative for intraepithelial lesion or malignancy (NILM). 06/06/2021 9:31 AM CDT [facility] at 0931 CDT Pap Disclaimer The Pap test is a screening test designed to aid in the detection of cervical cancer and its precursor lesions. It is not a diagnostic procedure and should not be used as the sole means of detecting cervical cancer. Both false-positive and false-negative results may occur. 06/06/2021 9:31 AM CDT [facility] Gross Description The specimen is received in SurePath fixative and properly labeled. 1 Pap-stained SurePath slide is prepared. 06/06/2021 9:31 AM CDT [facility] Embedded Images 9:31 AM CDT [facility] Other Specimen Type ENTIRE ENDOCERVIX / Unknown 05/30/2021 3:56 PM CDT 05/30/2021 5:06 PM CDT Comment:LMP: 05/17/21 us Manasa Martinez PA-C LAB PATHOLOGY Final Resul t [address] [address], [facility] * LAB HIV-1 p24 AND HIV-1/HIV-2 ANTIBODIES (10/20/2018 12:36 PM TELEVISION PRESENTER) HIV-1 p24 Ag and HIV-1/HIV-2 Ab Nonreactive Nonreactive PN SOFT 10/20/2018 12:3 6 PM TELEVISION PRESENTER 10/20/2018 3:54 PM TELEVISION PRESENTER Narrative PN SOFT - 10/20/2018 4:53 PM TELEVISION PRESENTER Performed at [facility], [address] [place] [address] CLIA number [id number] us Griselda Kennedy MD LAB_1 Final Resul t PN SOFT [address] [place] [address] from Last 3 Months or Most Recently Relevant to Health Maintenance Insurance PENDING SALE TO [facility] [place] [address] [address] [employer] Care Teams Mobile Lab Technician Relationship Specialty Start Date End Date Devan Jones MD [address] [place] [address] PCP - General Family Practice 11/19/22
--- OUTSIDE RECORDS SUMMARY | 2025-06-05 10:14 | XMS_ITS | Clinical Summary ---
Author Organization [facility] Address [facility] [place] [address] Care Team Providers Care Stone Chimney Mason Name Role Phone Griselda Kennedy MD Primary Care Provider Unavailable Allergies Active Allergy Reactions Criticality Noted Date Comments Amoxicillin Nausea And Vomiting 07/11/2017 Medications loratadine (CLARITIN ORAL) Take 1 tablet by mouth once daily if needed. Active PROAIR HFA 90 mcg/actuation inhaler INHALE 1 PUFF BY MOUTH EVERY 6 HOURS NEEDED 0 9 Active acetaminophen (TYLENOL) 325 mg tabletIndicatio ns: care and examination of lactating mother (HC), (normal spontaneous vaginal delivery) (HC) Take 1-2 tablets by mouth every 4 hours if needed (mild pain). Max acetaminophen dose: 4000mg in 24 hrs. 100 tablet 9 Active ibuprofen (MOTRIN IB) 200 mg tabletIndicatio ns: care and examination of lactating mother (HC), (normal spontaneous vaginal delivery) (HC) Take 1-3 tablets by mouth every 6 hours if needed for Other (Specify) (for uterine cramping). Take with food. 100 tablet 9 Active vitamin-folic acid 1 mg ( RX) tablet/capsuleI ndications:Post care and examination of lactating mother (HC), (normal spontaneous vaginal delivery) (HC) Take 1 tablet by mouth once daily. 100 tablet 9 Active docusate (COLACE) 100 mg capsuleIndicati ons: care and examination of lactating mother (HC), (normal spontaneous vaginal delivery) (HC) Take 1 capsule by mouth once daily. 100 capsule 9 Active Breast Pump - PurchaseIndicat ions: care and examination of lactating mother (HC) Electric breast pump for home use. Gestation age at delivery: 37 weeks. Reason for need: . Length of need: 12 months 1 Device 9 Active Breast Pump - PurchaseIndicat ions: care and examination of lactating mother (HC) Electric breast pump for home use. Gestation age at delivery: 37 weeks. Reason for need: . Length of need: 12 months 1 unit 9 Active Active Problems Problem Noted Date Diagnosed Date (normal spontaneous vaginal delivery) 04/15 care and examination of lactating mot her 04/15/2019 Gestational hypertension, third trimester 2018 Mild asthma without complication 04/14/2019 37 weeks gestation of 04/14/2019 Depression 10/07/2018 Overview (04/16/2019): remote history of cutting behavior and hospitalized x 1 for suicidal ideation, did not act on this Anxiety during 09/22/2018 Overview (04/16/2019): zoloft 75 mg helpful fall 2017, weaned off with . Anxiety and depression 09/22/2018 Encounters Date Type Department Care Team Description 06/03/2025 Lab Requisition [facility] [phone] Penelope Palmer MD from Last 3 Months Social History Tobacco Use Types Packs/Day Years Used Date Smoking Tobacco: Former Cigarettes Q uit: 08/2018 Smokeless Tobacco: Never Tobacco Cessation:Counseling Given: No Alcohol Use Standard Drinks/Week Comments Not Currently 0 (1 standard drink = 0.6 oz pur e alcohol) Comments No Sex and Gender Information Value Date Recorded Sex Assigned at Not on file Legal Sex Female 5:52 PM CDT Gender Identity Not on file Sexual Orientation Not on file Obstetrics History Para Term AB IAB SAB Ectopic Multiple Livin g Live Births 2 1 1 0 1 1 0 0 0 1 1 Date Outcome GA Total Labor Labor/2nd/3rd Weight Sex Type Anes PTL Amber A1 A5 Name Clin 3 IAB 2018 Term 37w 3d 3.09 kg (6 lb 13 oz) F VAGINA L ABRAN Epidur al N Livin g 9 9 KYRA ON,BG TERELL Guillory ns Delivery Location:[facility]) Last Filed Vital Signs Vital Sign Reading Time Taken Comments Blood Pressure 129/88 04/16/2019 5:48 PM CDT Pulse 78 04/16/2019 5:48 PM CDT Temperature 36.4 C (97.5 F) 04/16/2019 10:18 AM CDT Respiratory Rate 16 04/16/2019 10:1 8 AM CDT Oxygen Saturation 98% 04/16/2019 10: 18 AM CDT Inhaled Oxygen Concentration - - Weight 72.4 kg (159 lb 11.2 oz) 04/14/2019 5:51 PM CDT Height 160 cm (5' 3) 04/14/2019 5:51 PM CDT Body Mass Index 28.29 04/14/2019 5:51 PM CDT Plan of Treatment Health Maintenance Due Date Last Done Comments Tetanus booster 2007 Depression screening for age 12+ 2008 HIV for age 15-65 2011 BMI (ht and wt on same day) for age 18+ 2014 Hepatitis C screening for ag e 18-79 2014 Hepatitis B series for 19+ ( 1 of 3 - 19+ 3-dose series) 2015 Pap test for age 21-65 2017 COVID-19 vaccine series (2 2023- season) 2024 07/09/2021 Influenza Vaccine (#1) 2025 Pneumococcal series for age 6-49 Aged Out No longer eligible based on patient's age to complete this topic [place] [address] [place] [address] [facility] Advance Directives * Full Code (Latest Code Status on File) Date Activated Date Inactivated Comments 04/14/2019 5:00 PM 04/16/2019 9:05 PM Care Teams Stone Chimney Mason Relationship Specialty Start Date End Date Griselda Kennedy MD PCP - General Obstetrics and Gynecology 03/22/19
--- NOTE | 2025-06-05 11:01 | ED_ITS ---
HPI - General Time Seen by Provider: 11:01 Date Seen: 06/05/25 Chief complaint: Hypertension Stated complaint: high blood pressure/pre eclampsia Time Seen by Provider: 06/05/25 10:27 Source: patient, RN notes reviewed and old records reviewed Mode of arrival: ambulatory Limitations: no limitations History of Present Illness HPI Narrative: This 29-year-old female is coming in to the ER with a generalized headache without visual changes in the setting. She was just discharged from OB yesterday afternoon after a vaginal delivery with severe preeclampsia. She did not require home medication, her blood pressures had overall improved after the delivery. They were not thinking she was going to require anything. She awoke with a generalize headache, has taken both Tylenol and ibuprofen and it is not going down. Her pressures have been in the 140/90 range. She has felt hot and sweaty but no documented fevers, she notes a little right-sided chest pain when she turns her head to the right, reaches with her arm down but no chest pain with out this type of movement. She does think it is musculoskeletal. No respiratory symptoms, no visual symptoms. She is breast feeding and supplementing with bottle, her milk just started to come in overnight per report. She has no abdominal pain, no concerns with amount of lochia. No calf or leg swelling. She is a 3 para 1 1 1 2, had spontaneous vaginal delivery at 36 weeks and 5 7th weeks gestation, labor was induced for preeclampsia with severe features. Patient did get an epidural, she states there was difficulty with it. She is not noticing really positional changes with this headache. Related Data Previous Rx's ?Medication ?Instructions ?Recorded ibuprofen 600 mg tablet 600 mg PO Q6H PRN #30 tabs 0 06/04/25 Allergies Allergy/AdvReac Type Severity Reaction Status Date / Time iron dextran complex (From Allergy Severe Difficulty Verified 06/05/25 10:21 Infed) Breathing Review of Systems Status of ROS: Reports: 6 or more systems reviewed and unremarkable except as noted in History and below [facility] Medical History Anxiety disorder with panic attacks ?F41.9 - Anxiety disorder, unspecified (ICD-10) Surgical History [place] teeth extracted ?K08.409 - Partial loss of teeth, unspecified cause, unspecified class (ICD- 10) Social History Narrative: SOCIAL??? 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 Partner: Mahad, SO??? Lives with: Mahad and Daughter, Sally??? Pets: 2 dogs and 1 cat Abuse: Denies past/present??? Special Diet: Denies??? Ok with a blood transfusion: yes??? Culture or samaritan beliefs: denies? RISK FACTORS??? Exercise Times/wk: Walking, 5x per week??? Depression/Anxiety: Hx of??? WALKER: 0 PHQ 9: 0??? Seat Belt Use: Routinely?? Smoking: Denies present; Hx of smoking 5-10 years ago socially Alcohol/day: Denies while ??? Caffeine: Coffee morning up to 1x per day??? Drug Use: Denies past/present??? MRSA: Denies? What is your current living situation?: I presently have a place to live Problems where you live: no known problems In the past 12 months, utilities in danger of being shut off: no In past 12 months, lack of transportation kept you from medical appts, meetings, work, or getting things needed for daily living: no In the past 12 mos, have been you worried that your food would run out before you had money to buy more?: never true In the past 12 mos, the food you bought just didn't last and you didn't have money to buy more?: never true Smoking Status: Never smoker How often does anyone, including family, friends and others, physically hurt you : never How often does anyone, including family, friends and others, insult or talk down to you: never How often does anyone, including family, friends and others, threaten you with harm: never How often does anyone, including family, friends and others, scream or curse at you: never Exam Const: Vital Signs, click to edit/add: Vital Signs - 24 hr 06/05/25 10:14 06/05/25 10:39 06/05/25 11:37 Temperature 97.1 F L Pulse Rate 55 L Pulse Rate [Pulse Oximeter] 59 L Respiratory Rate 18 Blood Pressure [Ri ght Upper Arm] 149/88 H 139/87 Pulse Oximetry 98 96 Oxygen Delivery Me thod Room Air 06/05/25 11:45 06/05/25 12:00 06/05/25 12:19 Temperature Pulse Rate 61 64 66 Pulse Rate [Pulse Oximeter] Respiratory Rate Blood Pressure [Ri ght Upper Arm] Pulse Oximetry 97 96 97 Oxygen Delivery Me thod This 29-year-old female is alert, interactive, no apparent distress. Baby is sleeping on her chest. Pupils are equal round, conjugate gaze, sclera clear, symmetrical facial function. Neck without any jugular venous distension. Lungs are clear, good air entry, no wheezing or crackles, no tachypnea, no accessory muscle use. Her speech is normal, able speak in complete sentences. CV regular rate and rhythm, no murmur, normal S1-S2, no S3-S4. She has no pain with reaching her arm behind her back or over her head, no palpable chest wall tenderness. Uterus below umbilicus and nontender. She has no abdominal pain, specifically no right upper quadrant abdominal tenderness. Calves are nontender, no swelling, no skin changes noted. Patient is using her arms and legs, was ambulatory into the ED of her own accord, no gross motor deficits noted. Documenting provider has reviewed patient's vital signs: yes Course Course ED Course: Have reviewed with patient her blood pressures are borderline. I do think we should look at labs, she does not seem like she is in any congestive heart failure but will also look at an EKG, chest x-ray as well as labs including troponin given her symptoms. Urinalysis will be difficult as she is and really would need to do a cath UA, do not feel that is necessary at this time. Will talk to Ob as well. She does not notice positional changes with her headache, she notes she only got 6 hours asleep and could be fatigue but the fact that it has not improved with Tylenol and ibuprofen is concerning with her borderline blood pressures for ongoing preeclampsia. Consultations Consultation #1: Did speak with Dr. Nash from OB. She does states that this patient did receive magnesium. She was induced for unremitting headaches. She is recommen ding that we start nifedipine extended release 30 mg daily. She wants her to follow-[facility], patient will need to call. She does state if patient does have a history of migraines, she could try triptans if she does use these, they are safe with , just not safe in . Her labs were reportedly normal during the hospitalization. I will contact her back if there is any change in the labs, so far CBC is stable. Hemoglobin is 9.9 which is better than discharge hemoglobin. Platelets are stable. Time: 11:59 Consultation #2: Did update Dr. Nash that the liver functions are rising. They are not meeting criteria for severe preeclampsia. She states patient needs to come back in for admission, she will order the magnesium. Will update patient. Time: 12:35 Vital Signs Vital signs: Initial Vital Signs Temperature 97.1 F L 06/05/25 10:14 Temperature Source Temporal Artery Scan 06/05/25 10:14 Pulse Rate 59 L 06/05/25 10:14 Respiratory Rate 18 06/05/25 10:14 Blood Pressure 149/88 H 06/05/25 10:14 Blood Pressure Mean 108 H 06/05/25 10:14 Blood Pressure Position Sitting 06/05/25 10:14 Pulse Oximetry 98 06/05/25 10:14 Oxygen Delivery Method Room Air 06/05/25 10:14 Vital Signs Temperature 97.1 F L 06/05/25 10:14 Pulse Rate 59 L 06/05/25 10:14 Respiratory Rate 18 06/05/25 10:14 Blood Pressure 149/88 H 06/05/25 10:14 Pulse Oximetry 98 06/05/25 10:14 Oxygen Delivery Method Room Air 06/05/25 10:14 Temperature 97.1 F L 06/05/25 10:14 Pulse Rate 66 06/05/25 12:19 Respiratory Rate 18 06/05/25 10:14 Blood Pressure 139/87 06/05/25 10:39 Pulse Oximetry 97 06/05/25 12:19 Oxygen Delivery Method Room Air 06/05/25 10:14 Medications Administered Medications: Discontinued Medications Generic Name Dose Route Start Last Admin Trade Name Freq PRN Reason Stop Dose Admin Nifedipine 30 mg 06/05/25 12:01 06/05/25 12:13 Nifedipine Er 30 Mg Tab PO 06/05/25 12:02 30 mg ONCE ONE Administration MDM - OB/Uterine Contractions Lab Data Attestation: I reviewed the patient's lab results. Lab results narrative: Liver enzymes are elevated. Labs: Lab Results 06/05/25 Range/Units 11:30 WBC 10.13 (4.50-11.00) K/uL RBC 3.34 L (4.00-5.20) m/uL Hgb 9.9 L (12.0-16.0) gm/dL Hct 30.4 L (33.0-51.0) % MCV 91 (80-100) fL MCH 30 (26-34) pg MCHC 33 (32-36) gm/dL RDW Coeff of Jocelyne 13.9 (11.5-15.5) % Plt Count 361 (140-440) K/uL Neut % (Auto) 71.2 (42.0-72.0) % Lymph % (Auto) 19.3 L (20-44) % [place] % (Auto) 6.0 (0.0-11.0) % Eos % (Auto) 2.5 (0.0-7.0) % Baso % (Auto) 0.5 (0.0-3.0) % Neut # (Auto) 7.21 H (1.7-7.0) K/uL Lymph # (Auto) 2.00 (0.90-2.90) K/uL [place] # (Auto) 0.60 (0.00-0.90) K/UL Eos # (Auto) 0.25 (0.00-0.50) K/uL Baso # (Auto) 0.05 (0.00-0.30) K/uL Abs Immat Gran (auto) 0.05 (0.00-0.30) K/uL Imm/Tot Granulo (auto) 0.5 % Sodium 139 (135-149) mmol/L Potassium 4.0 (3.6-5.1) mmol/L Chloride 108 (96-114) mmol/L Carbon Dioxide 27 (20-32) mmol/L Anion Gap 4 L (7-15) mEq/L BUN 11 (5-24) mg/dL Creatinine 0.8 (0.5-1.5) mg/dL Estimated Creat Clear 82.80 Estimated GFR 103 ml/min Glucose 79 (60-115) mg/dL Calcium 9.8 (8.4-10.6) mg/dL Total Bilirubin 0.2 (0.1-1.5) mg/dL Direct Bilirubin 0.1 (0.0-0.5) mg/dL AST 63 H (12-35) U/L ALT 54 H (4-35) U/L Alkaline Phosphatase 118 (40-150) U/L Troponin I < 0.01 (0.01-0.04) ng/mL Total Protein 6.5 (6.0-8.3) g/dL Albumin 3.5 (3.3-5.0) g/dL ECG Data Attestation: I personally reviewed and interpreted this ECG as follows: (Normal sinus rhythm with sinus arrhythmia, 70 beats per minute. No ischemia, no infarct.) ECG interpretation date: 06/05/25 ECG interpretation time: 11:35 Discharge Plan Discharge Clinical Impression: Pre-eclampsia in period Patient Disposition: Admitted As Inpatient
--- NOTE | 2025-06-05 11:09 | CRLHL7_ITS ---
For Patients: As a result of the Century Cures Act, medical imaging exams and procedure reports are released immediately into your electronic medical record. You may view this report before your referring provider. If you have questions, please contact your health care provider. INDICATION: Chest pain; preeclampsia. COMPARISON: AP chest May 05, 2025. TECHNIQUE: Single AP upright chest radiograph. FINDINGS: Normal size cardiac silhouette. Clear lung peace. No acute pulmonic infiltrates or CHF. No pneumothorax or pleural effusion. IMPRESSION: Negative to AP chest. Dictated by Hoang Jimenez MD @ 06/05/2025 11:38:51 AM (Electronically Signed)
[2025-06-05 11:37] LABS: Hematocrit 30.4 % (33.0-51.0); Hemoglobin* 9.9 gm/dL (12.0-16.0); Immature Granulocytes Abs Auto 0.05 K/uL (0.00-0.30); Immature Granulocytes Pct Auto 0.5 %; Mean Corpuscular HGB Conc 33 gm/dL (32-36); Mean Corpuscular Hemoglobin 30 pg (26-34); Mean Corpuscular Volume 91 fL (80-100); RDW Coefficient of Variation % 13.9 % (11.5-15.5); Red Blood Count 3.34 m/uL (4.00-5.20); White Blood Count* 10.13 K/uL (4.50-11.00)
[2025-06-05 11:39] LABS: Lymphocytes Absolute Auto 2.00 K/uL (0.90-2.90)
[2025-06-05 11:40] LABS: Slide Review Reflex No
[2025-06-05 11:50] LABS: Albumin* 3.5 g/dL (3.3-5.0); Chloride* 108 mmol/L (96-114); Potassium* 4.0 mmol/L (3.6-5.1); Sodium* 139 mmol/L (135-149)
[2025-06-05 11:53] LABS: Alanine Aminotransferase* 54 U/L (4-35); Alkaline Phosphatase* 118 U/L (40-150); Anion Gap 4 mEq/L (7-15); Aspartate Amino Transferase* 63 U/L (12-35); Bilirubin Direct* 0.1 mg/dL (0.0-0.5); Bilirubin Total* 0.2 mg/dL (0.1-1.5); Blood Urea Nitrogen* 11 mg/dL (5-24); Carbon Dioxide* 27 mmol/L (20-32); Creatinine* 0.8 mg/dL (0.5-1.5); Est. Creatinine Clearance* 82.80; Estimated Glomerular Filt Rate 103 ml/min; Total Protein* 6.5 g/dL (6.0-8.3)
[2025-06-05 11:54] LABS: Calcium* 9.8 mg/dL (8.4-10.6); Glucose* 79 mg/dL (60-115)
--- NOTE | 2025-06-05 12:36 | P.LDBA_ITS ---
Subjective History of Present Illness Time Seen by Provider: 14:00 Date Seen: 06/05/25 Narrative: Jayda is being admitted to Labor and Delivery for new onset transaminitis in patient with known preeclampsia by COSTUME DIRECTOR irritation. She is a 29yo s/p a at 36w4d gestation on 06/02/2025 after undergoing an IOL for severe pre-e by COSTUME DIRECTOR irritation => unremitting FOWLER and visual disturbance. She received magnesium for seizure prophylaxis which was discontinued 24hours after delivery on 06/03/25. Her highest BP was 135/89 on 06/04/25 at 07:50am on repeat at 08:11am = 129/83. She was discharged home on 06/04/25 last BP prior to discharge was: 124/79 at 12:20PM on 06/04/25. Jayda then contacted the Center this morning reporting that her headache had returned, not responding to medication and her blood pressures were 140/90s. Reports the headache that she had when she woke up this morning was very similar to the headache she had when she was admitted for induction on 06/01/2025. She presented to the ED for evaluation. She reported some right chest pain that was worse with turning her head to the right and mild shortness of breath. Blood pressures on arrival to the emergency department were: 149/88 and 139/87. EKG and chest x-ray were normal. Troponin also normal <0.1. Preeclampsia labs showed: AST 63 (33 on 06/04), ALT 54 (18 on 06/04), creatinine 0.8 (0.9 on 06/04), hemoglobin 9.9 (9.3 on 06/04), platelets 361 K (303 on 06/04). She was readmitted to the hospital for 2nd course of magnesium sulfate due to rising liver function tests /new onset transaminitis in a patient with known severe preeclampsia. She was also started on nifedipine ER the mg daily. Her full history and physical was dictated by Dr. Mccloud on 05/27/25. Please see this for details. Specific Issues/Plans Partner: Mahad Daughter: Sally(age 6) Baby: [] Transfer at 24.2 weeks from [facility] H&P by Dr. Mccloud on 05/27 #Preeclampsia w/o severe features dx'd on 05/11/25 @ 33w3d Elevated BPs 05/11/25 and proteinuria in 24 hours collected on 05/03/25 Growth US 05/11/25 Start twice weekly monitoring Delivery at 37 weeks, IOL scheduling form request sent start 06/04/25 at 36 6/7 weeks BMTZ: 05/11/25, 05/12/25 #Proteinuria: 05/03/25 32w2d 24hr urine protein: 457.5gm. Urine P/C 0.31 * Referral to nephrology #Hx of Pre-eclampsia w/out SF Taking baby ASA # Hx of mild Asthma, Does not use inhaler, improved in adulthood # Hx of anxiety with panic attacks: not on medication # 05/20/25: [facility] for SOB, palpitations, tachycardia, elevated BP and chest pain * EKG: normal sinus rhythm * Troponin normal * CBC and comprehensive metabolic panel normal # Seen on Center for left-sided pelvic cramping on 03/30/2025. Ultrasound showed only placental lyon near the cord insertion measuring up to 5.2 cm; otherwise normal findings. Recommended initiation of MiraLax. Follow up on 04/06. # Anemia with hemoglobin 10.5 on 03/30/2025. - Start Fe every other day on 04/06 - Recheck on 05/12: 9.9. - Iron infusions: Had a vasovagal response (? due to anxiety) to first infusion on 05/18 so will restart PO 2tabs QOD. #Varicella non-immune - Recommend vaccine PP Transfer labs: Blood type: A+, antibody screen negative.??? Hgb (12/14/2024): 13.7??? Platelets (12/14/2024): 335??? Rubella: Immune??? Varicella: NOT immune - vaccine needed PP RPR: non-reactive??? HBsAg: non-reactive??? Hep C: negative? HIV: negative??? UC: negative? GC/Chlamydia: negative/negative??? Pap (12/14/2024): NIL??? Genetic screening: Low risk? 1st trimester: 11/16/2024??? Anatomy scan (02/03/2025): SIUP, limited view of outflow tracts and sacral spine. EFW 66.8%. Posterior placenta. No follow-up needed. Growth US 05/11/25: BPD: 8.3 cm, 33 weeks 4 days. Head circumference: 30.1 cm, 33 weeks 2 days. Abdominal circumference: 32.3 cm, 36 weeks 1 day. Femur length: 6.6 cm, 34 weeks . HC/AC: 0.93. The weight is estimated at 2573 grams, the 87th percentile.The amniotic fluid volume is within normal limits with single deepest pocket of 6 cm. COVID: declines Flu: TDAP: 05/11/25 RSV: N/A OB - Problem Based A/P Additional Plan (1) Pre-eclampsia in period: Problem details: New transaminitis Status: Acute Plan 1. Nifedipine ER 30mg daily 2. Magnesium sulfate for seizure prophylaxis x 24hrs. 3. Pre-e labs Q6hr while on magnesium. 4. For FOWLER: Tylenol 1,000mg PO Q6hr prn, Benadryl 25mg PO Qhr prn and Reglan 10mg PO Q6hr prn. Oxycodone 5mg PO TID for breakthrough FOWLER. 5. Ibuprofen 600mg PO QID for cramping/headache prn. 6. Regular diet. OB Exam Physical Exam Vital signs: Temp Pulse Resp BP Pulse Ox O2 Del Method 97.1 F L 66 18 139/87 97 Room Air 06/05/25 10:14 06/05/25 12:19 06/05/25 10:14 06/05/25 10:39 06/05/25 12:19 06/05/25 10:14 Narrative: General: Pleasant, , well groomed woman in no acute distress. Vital signs: Included in her electronic medical record. Heart: Regular rate and rhythm without gallop, rub or murmur. Chest: Clear to auscultation bilaterally. Abdomen: Soft, nontender and nondistended with normal bowel sounds throughout. No CVA or flank tenderness. Fundus: Firm at 3 cm below the umbilicus in the midline. Extremities: No pain or edema.
[2025-06-05] MEDS: MAGNESIUM IV 4 GM/100 ML PIGGYBACK IVPB (13:43)
[2025-06-05] MEDS: LACTATED RINGERS 1000 ML 1,000 ML 75 ML IV (13:49)
[2025-06-05] MEDS: MAGNESIUM Infusion 40 GM/1,000 ML IV.SOLN IVPB (14:17)
[2025-06-05] MEDS: ACETAMINOPHEN 500 MG TABLET 1000 MG PO (17:38)
[2025-06-05] MEDS: IBUPROFEN 600 MG TABLET PO (17:39)
[2025-06-05 20:06] LABS: Hematocrit 32.0 % (33.0-51.0); Hemoglobin* 10.6 gm/dL (12.0-16.0); Mean Corpuscular HGB Conc 33 gm/dL (32-36); Mean Corpuscular Hemoglobin 30 pg (26-34); Mean Corpuscular Volume 90 fL (80-100); Red Blood Count 3.55 m/uL (4.00-5.20); White Blood Count* 12.06 K/uL (4.50-11.00)
[2025-06-05 20:08] LABS: Slide Review Reflex No
[2025-06-05 20:26] LABS: Alanine Aminotransferase* 65 U/L (4-35); Aspartate Amino Transferase* 72 U/L (12-35); Blood Urea Nitrogen* 11 mg/dL (5-24); Creatinine* 0.8 mg/dL (0.5-1.5); Est. Creatinine Clearance* 82.80; Estimated Glomerular Filt Rate 103 ml/min
[2025-06-06] VITALS (12 sets, daily range): BP systolic 113–147; BP diastolic 71–94; PULSE 85–126; RESP 16–18; TEMP 36.1–37.2; O2SAT 94–98
[2025-06-06 01:20] LABS: Hematocrit 33.1 % (33.0-51.0); Hemoglobin* 10.8 gm/dL (12.0-16.0); Mean Corpuscular HGB Conc 33 gm/dL (32-36); Mean Corpuscular Hemoglobin 29 pg (26-34); Mean Corpuscular Volume 90 fL (80-100); Red Blood Count 3.68 m/uL (4.00-5.20); White Blood Count* 10.93 K/uL (4.50-11.00)
[2025-06-06 01:28] LABS: Slide Review Reflex No
[2025-06-06 01:35] LABS: Alanine Aminotransferase* 70 U/L (4-35); Aspartate Amino Transferase* 67 U/L (12-35); Blood Urea Nitrogen* 13 mg/dL (5-24); Creatinine* 1.0 mg/dL (0.5-1.5); Est. Creatinine Clearance* 66.24; Estimated Glomerular Filt Rate 79 ml/min
[2025-06-06] MEDS: LACTATED RINGERS 1000 ML 1,000 ML 75 ML IV (02:46)
[2025-06-06 07:38] LABS: Hematocrit 36.2 % (33.0-51.0); Hemoglobin* 11.7 gm/dL (12.0-16.0); Mean Corpuscular HGB Conc 32 gm/dL (32-36); Mean Corpuscular Hemoglobin 29 pg (26-34); Mean Corpuscular Volume 91 fL (80-100); Red Blood Count 4.00 m/uL (4.00-5.20); White Blood Count* 10.35 K/uL (4.50-11.00)
[2025-06-06 07:46] LABS: Slide Review Reflex No
[2025-06-06 07:59] LABS: Alanine Aminotransferase* 77 U/L (4-35); Aspartate Amino Transferase* 73 U/L (12-35); Blood Urea Nitrogen* 12 mg/dL (5-24); Creatinine* 0.8 mg/dL (0.5-1.5); Est. Creatinine Clearance* 82.80; Estimated Glomerular Filt Rate 103 ml/min
--- NOTE | 2025-06-06 09:00 | P.OBPN_ITS ---
OB - PN:Subj Subjective Time Seen by Provider: 08:20 Date Seen: 06/06/25 Narrative: Subjective: Jayda reports feeling relatively well this morning. She has a number of questions regarding preeclampsia and elevated liver enzymes. She reports significant anxiety surrounding preeclampsia because she searched online found reports of maternal from this disorder. I was able to reassure her that she is not at risk of mortality as her lab results are mildly elevated with AST and ALT maximum of 70s. For women who are at risk for from preeclampsia they typically have kidney or liver failure or stroke from severe hypertension: She has none of these problems. Her baby was also admitted for treatment of jaundice and that seems to be improving. She is breast and bottle feeding. She denies pain, headache, visual disturbance, right upper quadrant pain and swelling. She states the headache she had yesterday has completely resolved. I increased nifedipine ER to 30 mg b.i.d. due to blood pressures being 130s-140s/80s-90s this morning. I also recommended decreasing her magnesium drip because her creatinine at 1:00 a.m. was 1.0 which is high for and her magnesium level this morning at 7:30 a.m. was 7.1 which is higher than I typically like to see it. She is not having any evidence of magnesium toxicity. Magnesium due to be discontinued at approximately 2:00 p.m. today. Plan on keeping her for 24 hours after the magnesium is discontinued to monitor blood pressure and labs. I ordered another set of labs 6 hours after the a.m. labs today and another set of labs tomorrow morning. OB - PN: Obj Exam Physical Exam: Vital signs: Temp Pulse Resp BP Pulse Ox O2 Del Method 98.1 F 94 18 147/92 H 98 Room Air 06/06/25 07:35 06/06/25 07:35 06/06/25 07:35 06/06/25 07:35 06/06/25 07:35 06/06/25 07:35 Narrative: General: Pleasant, , well groomed woman in no acute distress. Vital signs: Included in her electronic medical record. Heart: Regular rate and rhythm without gallop, rub or murmur. Chest: Clear to auscultation bilaterally. Abdomen: Soft, nontender and nondistended with normal bowel sounds throughout. No CVA or flank tenderness. Fundus is firm 3 cm below the umbilicus in the midline Extremities: No pain or edema. OB - PN: Obj Data Labs Labs: Laboratory Results - last 24 hr 06/05/25 06/05/25 06/06/25 11:30 20:00 01:08 WBC 10.13 12.06 H 10.93 RBC 3.34 L 3.55 L 3.68 L Hgb 9.9 L 10.6 L 10.8 L Hct 30.4 L 32.0 L 33.1 MCV 91 90 90 MCH 30 30 29 MCHC 33 33 33 RDW Coeff of Jocelyne 13.9 Plt Count 361 407 405 Neut % (Auto) 71.2 Lymph % (Auto) 19.3 L [place] % (Auto) 6.0 Eos % (Auto) 2.5 Baso % (Auto) 0.5 Neut # (Auto) 7.21 H Lymph # (Auto) 2.00 [place] # (Auto) 0.60 Eos # (Auto) 0.25 Baso # (Auto) 0.05 Abs Immat Gran (auto) 0.05 Imm/Tot Granulo (auto) 0.5 Sodium 139 Potassium 4.0 Chloride 108 Carbon Dioxide 27 Anion Gap 4 L BUN 11 11 13 Creatinine 0.8 0.8 1.0 Estimated Creat Clear 82.80 82.80 66.24 Estimated GFR 103 103 79 Glucose 79 Uric Acid 4.7 Calcium 9.8 Magnesium 5.4 H* 6.7 H* Total Bilirubin 0.2 Direct Bilirubin 0.1 AST 63 H 72 H 67 H ALT 54 H 65 H 70 H Alkaline Phosphatase 118 Troponin I < 0.01 Total Protein 6.5 Albumin 3.5 06/06/25 07:33 WBC 10.35 RBC 4.00 Hgb 11.7 L Hct 36.2 MCV 91 MCH 29 MCHC 32 RDW Coeff of Jocelyne Plt Count 468 H Neut % (Auto) Lymph % (Auto) [place] % (Auto) Eos % (Auto) Baso % (Auto) Neut # (Auto) Lymph # (Auto) [place] # (Auto) Eos # (Auto) Baso # (Auto) Abs Immat Gran (auto) Imm/Tot Granulo (auto) Sodium Potassium Chloride Carbon Dioxide Anion Gap BUN 12 Creatinine 0.8 Estimated Creat Clear 82.80 Estimated GFR 103 Glucose Uric Acid Calcium Magnesium 7.1 H* Total Bilirubin Direct Bilirubin AST 73 H ALT 77 H Alkaline Phosphatase Troponin I Total Protein Albumin OB - PN: A/P Delivery Assessment and Plan (1) Pre-eclampsia in period: Problem details: New transaminitis Status: Acute Assessment and Plan: 1. Continue magnesium for total of 24 hours. 2. Nifedipine ER 30 mg p.o. b.i.d. 3. Continue preeclampsia labs every 6 hours while on magnesium then another set of labs tomorrow morning: ordered. 4. Planning discharge home tomorrow. I recommended monitoring her blood pressure 1-2 times per day and will give parameters to contact the clinic for medication management. 5. Recommend being seen in the clinic for blood pressure check on 06/11/2025. 6. Answer questions regarding preeclampsia to the best of my ability hopefully this reassured the patient and her spouse.
[2025-06-06] MEDS: IBUPROFEN 600 MG TABLET PO ×2 (09:35→17:47)
[2025-06-06] MEDS: MAGNESIUM Infusion 40 GM/1,000 ML IV.SOLN IVPB (11:35)
[2025-06-06 13:13] LABS: Hematocrit 33.9 % (33.0-51.0); Hemoglobin* 11.2 gm/dL (12.0-16.0); Mean Corpuscular HGB Conc 33 gm/dL (32-36); Mean Corpuscular Hemoglobin 30 pg (26-34); Mean Corpuscular Volume 90 fL (80-100); Red Blood Count 3.76 m/uL (4.00-5.20); White Blood Count* 10.67 K/uL (4.50-11.00)
[2025-06-06 13:27] LABS: Alanine Aminotransferase* 74 U/L (4-35); Aspartate Amino Transferase* 63 U/L (12-35); Blood Urea Nitrogen* 13 mg/dL (5-24); Creatinine* 0.8 mg/dL (0.5-1.5); Est. Creatinine Clearance* 82.80; Estimated Glomerular Filt Rate 103 ml/min
[2025-06-06 13:51] LABS: Slide Review Reflex No
[2025-06-06] MEDS: DOCUSATE SODIUM 100 MG CAPSULE PO (17:47)
[2025-06-07 00:26] VITALS: BP 119/79; PULSE 94; RESP 16; TEMP 36.6; O2SAT 98
[2025-06-07 04:20] LABS: Hematocrit 35.7 % (33.0-51.0); Hemoglobin* 11.6 gm/dL (12.0-16.0); Mean Corpuscular HGB Conc 33 gm/dL (32-36); Mean Corpuscular Hemoglobin 29 pg (26-34); Mean Corpuscular Volume 90 fL (80-100); Red Blood Count 3.95 m/uL (4.00-5.20); Slide Review Reflex No; White Blood Count* 10.33 K/uL (4.50-11.00)
[2025-06-07] MEDS: IBUPROFEN 600 MG TABLET PO (04:28)
[2025-06-07 04:33] VITALS: BP 126/85; PULSE 94; RESP 16; TEMP 36.9; O2SAT 98
[2025-06-07 04:38] LABS: Alanine Aminotransferase* 61 U/L (4-35); Aspartate Amino Transferase* 42 U/L (12-35); Blood Urea Nitrogen* 18 mg/dL (5-24); Creatinine* 0.8 mg/dL (0.5-1.5); Est. Creatinine Clearance* 82.80; Estimated Glomerular Filt Rate 103 ml/min
[2025-06-07 08:30] VITALS: BP 125/81; PULSE 80; RESP 16; TEMP 36.7; O2SAT 96
[2025-06-07] MEDS: DOCUSATE SODIUM 100 MG CAPSULE PO (08:30)
[2025-06-07 12:00] VITALS: BP 108/72; PULSE 87; RESP 16; O2SAT 97
[2025-06-07 14:30] VITALS: BP 124/81; PULSE 76; RESP 16; TEMP 36.7; O2SAT 97
--- NOTE | 2025-06-07 14:41 | PM.OBDSVD1 ---
DS: Providers Provider Date Seen: 06/07/25 Date of admission: 06/05/25 13:24 Primary care physician: Not a Local Provider Admitting Clinician: Yamileth Nash MD Attending Physician on discharge: Arlet Maria MD Date of Discharge: 06/07/25 DS: Diagnosis Discharge Diagnosis (1) Pre-eclampsia in period: Status: Acute Problem details: New transaminitis Exam Const: Vital Signs, click to edit/add: Vital Signs - 24 hr 06/06/25 17:25 06/06/25 19:30 06/07/25 00:26 Temperature 99.0 F 98.7 F 97.9 F Pulse Rate [Pulse Oximeter] 95 95 94 Respiratory Rate 16 16 16 Blood Pressure [Ri ght Arm] 123/74 123/79 119/79 Pulse Oximetry 97 97 98 Oxygen Delivery Me thod Room Air Room Air Room Air 06/07/25 04:33 06/07/25 08:30 06/07/25 12:00 Temperature 98.5 F 98.0 F Pulse Rate [Pulse Oximeter] 94 80 87 Respiratory Rate 16 16 16 Blood Pressure [Ri ght Arm] 126/85 125/81 108/72 Pulse Oximetry 98 96 97 Oxygen Delivery Me thod Room Air Room Air Room Air 06/07/25 14:30 Temperature 98.1 F Pulse Rate [Pulse Oximeter] 76 Respiratory Rate 16 Blood Pressure [Ri ght Arm] 124/81 Pulse Oximetry 97 Oxygen Delivery Me thod Room Air Documenting provider has reviewed patient's vital signs: yes Common normals: no apparent distress and oriented x3 General appearance: cooperative and comfortable HENMT: Common normals: normocephalic Head and scalp: normocephalic Resp: Common normals: normal respiratory effort Cardio: Common normals: regular rate and regular rhythm Rate: regular rate Rhythm: regular rhythm GI: Common normals: non-tender Extremity: Common normals: normal to inspection and no pedal edema Neuro: Common normals: oriented x3 Psych: Common normals: affect normal OB - DS: Summary Hospital Course Hospital Course: The patient is a 29 year old G 3 P 1112 that was re-admitted to the [facility] on 06/05/25 for preeclampsia with severe features based on new onset transaminitis. She had been admitted for labor induction at 36 5/7 weeks gestation for preeclampsia with severe features on 06/01/2025 and had an uncomplicated vaginal delivery on 06/02/2025. She was discharged home without the need for antihypertensive medications on 06/04/2025, but was readmitted the following day when she developed a severe headache and was found to have new onset transaminitis. She was given a second course of magnesium sulfate prophylaxis and started on nifedipine ER 30 mg twice daily. Her blood pressures have remained stable for the last 24 hours off of Mag. Her headache has completely resolved and her liver function tests are decreasing and no longer twice normal range. Status at Discharge Functional status at discharge: independent ambulation Overall status at discharge: patient is back to baseline Time Spent with Patient Time attestation: Total time spent providing and/or coordinating discharge services: Discharge Plan Discharge Disposition: Home, Self-Care Date of Admission: 06/05/25 13:24 Attending Provider on Discharge: Arlet Maria Primary Care Provider: Provider,Not a Local Condition: Improved Anticipated Discharge Date/Time: 06/07/25 16:00 Discharge Medications: New nifedipine 30 mg Tablet Extended Release 30 mg PO BID Qty: 60 1RF Continued ibuprofen 600 mg Tablet 600 mg PO Q6H PRNQty: 30 0RF Discharge Orders: Discharge Order (Routine); Ordered 06/07/25 Ordered By: Arlet Maria Patient Education: Preeclampsia and Eclampsia After Delivery (GEN) Additional Instructions: ACTIVITY RESTRICTIONS: Nothing vaginally for 6 weeks after delivery: no tampons/intercourse Off of work/school for a minimum of 6 weeks Symptoms to report to doctor: Bleeding that saturates more than one pad per hour Passing clots larger than the size of a golf ball Pain not relieved by prescribed medication Fever: temperature 100.4o Fahrenheit A foul vaginal odor Difficulty in emotions, mood and functions Thoughts of hurting yourself and/or Painful, reddened area in your breast Any drainage, redness or tenderness in your IV/epidural site Severe headache that doesn't improve after taking medications Changes in vision, including temporary loss of vision, blurred vision, and/or light sensitivity Upper abdominal pain (especially if under ribs on the right side) Decrease in urination or painful, frequent urinating Chest pain Shortness of breath Tenderness or pain with redness and/swelling in the calf(s) of your leg Concerns about your incision: increased pain, swelling, redness or drainage. For Blood Pressure: Medication: Nifedipine ER 30mg 2x/day Check your blood pressure at home at least once a day. Be seen in the clinic for a BP check on 06/11/25. Contact the clinic at if your BP >/= 140/90 or </= 90/60 to get recommendations on medication management. Go to the Emergency Department if your BP is >/= 160/110. Follow-up: 1. 2 week visit: Screen for anxiety/depression, discuss contraceptive options, incision check and answer questions regarding self and care. 2. A 6 week visit for an annual physical exam. For Pain: Take ibuprofen 600mg every 6 hours and/or ES Tylenol 1,000mg (2 tablets/capsules) every 6 hours consultation services are available to all mothers and babies for the first year after delivery. To make an appointment, please call [phone]. Activity Level: Other Discharge Diet: Regular Follow Up Appointments: [facility] [Outside] Provider,Not a Local [Primary Care Provider, Family Practice] Forms: [employer] Info Instructions DS:Data Additional Comments Additional comments: 06/07/2025: AST 42, ALT 61, creatinine 0.8, platelets 469, hemoglobin 11.6.
== END 2025-06-07 15:10 | disposition home or self-care (01) | DRG 776 ==
LOC: ED 13:35 → OB 13:36
PROVIDERS: Obstetrics & Gynecology; Admitting Provider Obstetrics & Gynecology; Emergency Provider Family Medicine; Visit Provider Obstetrics & Gynecology
DX: O14.15 Severe pre-eclampsia, complicating the puerperium (principal); F41.0 Panic disorder [episodic paroxysmal anxiety]
CPT/HCPCS: 36415; 71045; 80053; 82248; 82565; 83735; 84450; 84460; 84484; 84520; 84550; 85025; 85027; 93005; 94761; 99284; 99285; A9270; J3475; J7120